=== PATIENT | female | born 1995 | race Caucasian/White ===

== ENCOUNTER 2022-01-11 02:08 | Day surgery (SDC) | payer OTHER, SELFPAY ==
[2022-01-09 12:22] VITALS: BMI 38.3
--- NOTE | 2022-01-09 12:30 | PC.NURSE ---
Report to the Outpatient Waiting Room, entrance under the green pavilion located off [facility], at time 1000 on date 01/11/22. OR Time: 1200. - You will be asked a series of questions to screen for COVID 19 for your protection. - A mask is required within the hospital. - No visitors are allowed at this time. Preoperative COVID Testing Requirements: TO SEND COPY OF + RESULT No COVID Test needed if: (proof is required; if not received patient will have Rapid Test prior to entry) - Patient has received COVID Vaccine at least 14 days prior to procedure date or - Patient has positive COVID test result within last 90 days of surgery date. COVID Test needed if above criteria is not met If not COVID vaccinated a COVID test must be conducted within 72 hours of surgery and patient is asked to isolate self from time of testing until procedure. You will go to the [email or web address] Site for your COVID testing. The [email or web address] site is located at the corner of [address] [facility]. You will only be called if COVID results are positive and your surgeon may reschedule your elective surgery date. Patients may have clear liquids (water, carbonated beverages, clear teas, apple juice) until 3 hours prior to surgery with a maximum of 20 ounces. - No food from midnight until time of surgery Take the following medications with a SIP of water the morning of surgery: NONE Medications to discontinue per physician: VITAMINS Date to take last dose: NO MORE UNTIL AFTER SURGERY Please no make-up, nail upper sorbian, hairspray, perfume, deodorant, or body powder the day of surgery. No jewelry (including any body piercings) or valuables the day of surgery, leave them at home. Please take a shower or bath the night before, or the morning of, surgery with an antibacterial soap. Wear comfortable, loose fitting clothing. - Jewelry must be removed prior to entering the operating room. Rings and piercings that are not removed may be cut off. - The hospital will not accept responsibility for valuables. - Please leave all valuables, including medications, at home the day of surgery. If you are going home after surgery, a licensed pizza delivery driver must drive you home. - NO public transportation without another adult. - We recommend that an adult stay with you for 24 hours following discharge. - We also recommend that you do not drive, make important decision, drink alcoholic beverages, or take any drugs that were not prescribed by your health care provider for at least 24 hours after your discharge time. Follow any additional instructions given to you from your surgeon. Telephone instructions given to LOUIE HOPE and asked if any additional questions and then verbalized understanding. Patient advised to call surgeon office or pre surgery nurse liaison [phone] if any additional questions.
--- NOTE | 2022-01-10 16:17 | P.PNAN_ITS ---
Anes - Initial Pre Proc Eval Procedure: Operation Date: 01/11/22 12:00 Proposed Procedures p Suction Dilatation Curettage - Ashlie Bah MD Date/Time: 01/10/22 16:17 Surgeon: Ashlie Bah MD Pre Op Diagnosis: missed AB Patient Data Age: 26 Gender: F Height: 1.77 m Weight: 119.5 kg Allergies Allergy/AdvReac Type Severity Reaction Status Date / Time No Known Allergies Allergy Verified 01/09/22 12:21 Home Medications Medication Instructions Recorded Confirmed Type no.144-folic acid 2 tablet PO DAILY 01/09/22 01/09/22 History [] Patient hx anesthesia problems: none Family hx anesthesia problems: none Results Review: All pre-operative results and documents have been reviewed as part of the pre-operative evaluation. [facility] Past Medical History Medical History (Updated 01/11/22 @ 11:48 by Rosendo Blanc MD) Anxiety Depression Obesity Social History Social History Smoking status: Never smoker Alcohol intake: never Substance use: never Substance use type: does not use Living arrangements: with family Spiritual care concerns: No Anes - Eval Final PreProcedure Day of Procedure 01/10/22 16:17 Patient weight: obese Heart: regular rate and rhythm Lungs: clear to auscultation and normal air movement Airway: Mallampati scale class II Neurological: alert and oriented Last oral intake: >/= 8 hours ASA classification: II Emergent: no Anesthetic plan: proceed Anesthesia type and monitoring: general GIVS Results Review: All pre-operative results and documents have been reviewed as part of the pre-operative evaluation. Informed Consent: The patient's anesthetic plan and its attendant risks and benefits were discussed with the patient/family/POA. Questions were solicited and answers provided to the satisfaction of the patient/family/POA.
[2022-01-11] MEDS: ACETAMINOPHEN 500 MG TABLET 1000 MG PO (11:02)
[2022-01-11] MEDS: LACTATED RINGERS 1,000 ML 30 ML IV CONT (11:03)
[2022-01-11 11:30] VITALS: BP 141/60; PULSE 68; RESP 16; TEMP 36.5; O2SAT 100
--- NOTE | 2022-01-11 11:55 | PM.IMHP ---
H&P: HPI History of Present Illness Date/Time: 01/11/22 11:55 Chief Complaint: miscarriage Narrative: Ashlie is a 26yo found to have missed ab on Sunday at 12w by dates, 8w by size. No bleeding yet. History only sig for anxiety and depression. Review of Systems Review of Systems: All systems reviewed & are unremarkable except as noted in HPI and below PMFSH Past Medical History Medical History (Updated 01/11/22 @ 11:58 by Ashlie Bah MD) Anxiety Depression Obesity Social History Social History Smoking status: Never smoker Alcohol intake: never Substance use: never Substance use type: does not use Living arrangements: with family Spiritual care concerns: No Meds Home Medications and Allergies Home Medications Medication Instructions Recorded Confirmed Type no.144-folic acid 2 tablet PO DAILY 01/09/22 01/09/22 History [] Allergies Allergy/AdvReac Type Severity Reaction Status Date / Time No Known Allergies Allergy Verified 01/09/22 12:21 Exam Const: General: no acute distress Resp: Effort & Inspection: normal respiratory effort Auscultation: clear to auscultation bilaterally Cardio: Rate: regular rate Rhythm: regular rhythm GI: GI Palp: Yes Soft to palpation Extrem: General: normal to inspection Assessment and Plan Assessment and plan (1) Missed : Code(s): O02.1 - Missed Status: Acute Additional Plan Discussed RBA, consented. Will proceed. elier ALMEIDA Rh pos.
--- NOTE | 2022-01-11 12:01 | WPDHPUPDATE1 ---
History and Physical Update Update Date/Time: 01/11/22 12:01 History and Physical has been reviewed, including an updated exam of the patient. There are NO changes in the patient's condition. Risks, benefits, and alternatives have been discussed and questions answered. Patient agrees to proceed with procedure.
[2022-01-11] MEDS: DOXYCYCLINE 100 MG/NS 100 ML 100 MG/100 ML BAG IVPB (12:07)
[2022-01-11] MEDS: BUPIVACAINE/EPINEPHRINE 0.25% 10 ML VIAL INFILTRATE (12:25)
--- NOTE | 2022-01-11 12:41 | W.PM.PROC2 ---
Procedure Note - Detailed Date of Procedure 01/11/22 Pre-op Diagnosis missed AB Post-op Diagnosis same Procedure Performed suction D and C Surgeon Ashlie Bah MD Anesthesia MAC Findings Uterus sounded to 10cm. copious products of conception obtained. brisk bleeding at end of procedure treated with methergine. Description of Procedure The patient was taken to the OR and placed in supine position in dorsal lithotomy. She received MAC anesthesia and doxycycline. She was prepped and draped in normal fashion. A speculum was placed and the cervix was grasped with a single tooth tenaculum. A paracervical block was placed with 10cc 0.25% marcaine with epinephrine. The cervix was sequentially dilated to 10 aguirre. The suction was tested and then the suction catheter was inserted into the uterine cavity. Several passes were made until no further products of conception were obtained. Methergine was given for bleeding. The tenaculum was removed and hemostasis was obtained with pressure and monsel's solution. The speculum was removed. The patient tolerated the procedure well and was taken to the recovery room in stable condition. Estimated Blood Loss 200 Drains No Packing No Pathology yes Complications No immediate complications Condition stable Disposition same day
[2022-01-11 12:42] VITALS: BP 106/64; PULSE 80; RESP 16; O2SAT 97
--- NOTE | 2022-01-11 12:44 | SUR.OPER ---
EBL 200ML
[2022-01-11 13:20] VITALS: BP 135/69; PULSE 69; RESP 16
[2022-01-11 13:50] VITALS: BP 129/64; PULSE 65; RESP 16
== END 2022-01-11 14:02 | disposition home or self-care (01) ==
PROVIDERS: PCP Family Medicine; Visit Provider Obstetrics & Gynecology
PROC: (CPT 59820; principal; 2022-01-11 12:00)
DX: O02.1 Missed abortion (principal); Z3A.12 12 weeks gestation of pregnancy
CPT/HCPCS: 59820; 36415; 84702; 85461; 88305; A9270; J2210; J2250; J2704; J3010; J7120

== ENCOUNTER 2023-03-27 21:50 | Observation (INO) | payer OTHER, SELFPAY ==
--- NOTE | 2023-03-28 00:25 | OBADM ---
This patient, Ashlie Messer, admitted to the OB room Labor/Delivery/Recovery 106 for observation. Patient/family oriented to hospital policies and general routines including ID bracelet, bed and alarms, visiting hours, pain management, procedures, bathroom and other care routines, personal items, smoking policy, room service/diet, and visiting hours. Patient/Family are encouraged to report perceived risks to care and to ask questions if they do not understand what they are told or what they should do.
--- NOTE | 2023-04-20 07:33 | PM.OBTRLD ---
OB - Triage/Final Diagnosis Visit Information Comments/Additional reasons for admission: I have assessed the risk for this patient, Ashlie Messer, and determined that she would benefit from observation care. Final Diagnosis (1) False labor: Code(s): O47.9 - False labor, unspecified Status: Acute
== END 2023-03-28 00:23 | disposition home or self-care (01) ==
PROVIDERS: Admitting Provider Obstetrics & Gynecology; PCP Family Medicine; Visit Provider Obstetrics & Gynecology
DX: O47.1 False labor at or after 37 completed weeks of gestation (principal); Z3A.38 38 weeks gestation of pregnancy
CPT/HCPCS: G0378; G0379

== ENCOUNTER 2023-03-31 04:55 | Inpatient (IN) | payer OTHER, SELFPAY ==
[2023-03-31] VITALS (35 sets, daily range): BP systolic 102–175; BP diastolic 55–103; PULSE 57–143; RESP 15–18; TEMP 36.4–37.2; O2SAT 100; BMI 41.5
--- NOTE | 2023-03-31 04:55 | LDADM ---
This patient, Ashlie Messer, was admitted to Labor/Delivery/Recovery 108 on 03/31/23 at 04:55. Plans for labor, pain management and were discussed with patient. Patient/family oriented to hospital policies and general routines including ID bracelet, bed and alarms, visiting hours, pain management, procedures, bathroom and other care routines, personal items, smoking policy, room service/diet and guest tray routines, security routines, and visiting hours. Patient/Family are encouraged to report perceived risks to care and to ask questions if they do not understand what they are told or what they should do. See OBIX for further documentation.
[2023-03-31 05:43] LABS: Basophils Percent Auto 0.4 % (0.2-1.2); Eosinophils Absolute Auto 0.1 K/mm3 (0-0.3); Eosinophils Percent Auto 1.5 % (0-4.4); Hematocrit 36.8 % (37.0-47.0); Hemoglobin 12.1 g/dL (12.0-15.0); Immature Granulocyte Percent A 1.2 % (0-0.5); Lymphocytes Absolute Auto 1.52 K/mm3 (0.9-3.2); Lymphocytes Percent Auto 18.8 % (18.3-44.2); Mean Corpuscular HGB Conc 32.9 g/dl (32-36); Mean Corpuscular Hemoglobin 27.5 pg (26-34); Mean Corpuscular Volume 83.6 fl (80-100); Mean Platelet Volume 11.7 fl (7.4-10.4); Monocytes Absolute Auto 0.6 K/mm3 (0.1-0.6); Monocytes Percent Auto 7.2 % (2.6-8.5); Neutrophils Absolute Auto 5.7 K/mm3 (1.3-6.7); Neutrophils Percent Auto 70.9 % (45.5-73.1); Platelet Count Result 158 k/mm3 (150-375); Red Cell Distribution Width 14.7 % (11.5-14.5); White Blood Count 8.1 K/mm3 (4.5-10.0)
[2023-03-31] MEDS: ONDANSETRON INJ 4 MG/2 ML VIAL IV PUSH ×2 (07:43→16:23)
--- NOTE | 2023-03-31 07:43 | WPDOBADMIT ---
Obstetrics - Admit Note Admission Note: record reviewed. No pertinent additions to the history and/or any subsequent changes in the physical findings that are not consistent with the expected course of the were found. elective IOL, hx of precipitous , SVE 2/80/-2 AROM small amount of clear, odorless fluid, anticipate vaginal delivery Additions to the history and/or subsequent changes in the physical findings follow. None.
[2023-03-31] MEDS: LACTATED RINGERS 1,000 ML 125 ML IV CONT (13:30)
[2023-03-31] MEDS: OXYTOCIN 30 UNITS/NS 500 ML 30 UNITS/500 ML BAG IV CONT (13:31)
[2023-03-31] MEDS: fentaNYL CITRATE INJ (*CRX) 100 MCG/2 ML VIAL IV PUSH (17:05)
--- NOTE | 2023-03-31 18:35 | PM.OBPRVD ---
OB - Delivery Note Procedure Delivery date: 03/31/23 Procedure: Induction method: AROM and Per Pitocin Protocol Delivery monitor: External FHT and External Uterine Laceration Description: None Specimen: No Quantitative Blood Loss (ml): 75 Anesthesia type: None Disposition: Floor [place] Baby Date of : 03/31/23 Time of : 18:24 Weeks of gestation at delivery: 39 gender: Female presentation: compound position: Left Occiput Anterior Placenta delivery description: Spontaneous Narrative: baby to warmer, then skin to skin in stable condition
[2023-03-31] MEDS: OXYTOCIN 30 UNITS/NS 500 ML 30 UNITS/500 ML BAG 125 UNITS IV CONT (18:47)
[2023-03-31] MEDS: BENZOCAINE 20% AER SPR (*SP) 56 GM CAN 1 SPRAY TOPICAL (18:48)
[2023-03-31] MEDS: IBUPROFEN 600 MG TABLET PO (18:48)
[2023-03-31] MEDS: WITCH HAZEL 40 PADS 1 PAD TOPICAL (18:48)
--- NOTE | 2023-04-01 00:46 | OBPPTRN ---
03/31/2023 at 2105 Patient transferred to post room #284 in wheelchair. Support person present. Oriented to unit, room, information board, rooming in, admission packet and security measures. Patient verbalizes understanding.
[2023-04-01 03:25] VITALS: BP 126/65; PULSE 71; RESP 16; TEMP 36.6; O2SAT 100
[2023-04-01 05:15] LABS: Hematocrit 36.3 % (37.0-47.0); Hemoglobin 11.6 g/dL (12.0-15.0)
[2023-04-01] MEDS: ACETAMINOPHEN 325 MG TABLET 650 MG PO ×2 (06:36→16:26)
[2023-04-01 07:00] VITALS: BP 122/64; PULSE 75; RESP 16; TEMP 36.7; O2SAT 99
--- NOTE | 2023-04-01 09:07 | PM.OBPNVD ---
OB - PN: Subj Subjective Date/time seen: 04/01/23 09:07 s/p vaginal delivery day 1 OB - PN: Obj Data Labs 04/01/23 05:04 Labs: Laboratory Results - last 24 hr 04/01/23 05:04 Hgb 11.6 L Hct 36.3 L OB - PN A/P Plan day: 1 Plan: routine care Time Spent With Patient Time: Total time spent is greater than 50% in coordination of care (as documented) at patient's floor/unit and/or counseling patient: Review of Systems Review of Systems: All systems reviewed & are unremarkable except as noted in HPI and below Exam Const: General: cooperative and healthy appearing Resp: Effort & Inspection: normal respiratory effort Skin: General skin exam: normal color Extrem: Right lower extremity: normal to inspection Left lower extremity: normal to inspection
[2023-04-01] MEDS: DOCUSATE SODIUM 100 MG CAPSULE PO ×2 (10:02→16:26)
[2023-04-01] MEDS: MULTIVIT/MIN/PREN/FOL AC/IRON TABLET 1 TAB PO (10:02)
[2023-04-01] MEDS: IBUPROFEN 600 MG TABLET PO (12:03)
[2023-04-01 16:25] VITALS: BP 130/72; PULSE 78; RESP 16; TEMP 36.9; O2SAT 97
[2023-04-01 20:00] VITALS: BP 133/75; PULSE 69; RESP 16; TEMP 36.4; O2SAT 99
[2023-04-02] MEDS: TETANUS,DIPHTHERIA,AC PERTUSSIS ADULT (0.5 ML) BOOSTRIX IM (00:10)
--- NOTE | 2023-04-02 07:32 | PM.OBPNVD ---
OB - PN: Subj Subjective Date/time seen: 04/02/23 07:32 s/p vaginal delivery day 2 no complaints OB - PN: Obj Data Labs 04/01/23 05:04 OB - PN A/P Plan day: 2 Time Spent With Patient Time: Total time spent is greater than 50% in coordination of care (as documented) at patient's floor/unit and/or counseling patient: Review of Systems Review of Systems: All systems reviewed & are unremarkable except as noted in HPI and below Exam Const: General: cooperative Chest: Chest palpation & inspection: normal inspection of the chest Resp: Effort & Inspection: normal respiratory effort GI: Inspection: normal to inspection Skin: General skin exam: normal color Extrem: Right lower extremity: normal to inspection Left lower extremity: normal to inspection Psych: Appearance: grossly normal
--- NOTE | 2023-04-02 07:34 | PM.OBDSVD ---
DS: Admitting Diagnosis Discharge Date 04/02/23 Admitting Diagnosis IOL DS: Discharge Diagnosis Discharge Diagnosis (1) Vaginal delivery: Code(s): O80 - Encounter for full-term uncomplicated delivery Status: Acute OB - DS: Summary OB Procedures : None OB Procedures Intrapartum: Spontaneous Vag Delivery OB Procedures: : None Time Spent with Patient Time attestation: Total time spent providing and/or coordinating discharge services: Discharge Plan Discharge Attending physician on discharge: Brooke Alberts Discharging Clinician: Inés Pena Patient Disposition: Home, Self-Care Activity: pelvic rest Diet: regular Patient Instructions: Antibiotic Form Stand Alone Forms: General Discharge Information Follow-up/Referrals: Inés Pena CNM [Certified Nurse Event Set Up Specialist] - Discharge Medications: New ibuprofen 600 mg Tablet 600 mg PO Q6H PRN (Reason: Cramping) Qty: 30 0RF Continued 400 mcg Tablet,Chewable 2 tablet PO DAILY ferrous sulfate 325 mg (65 mg iron) Tablet 325 mg PO EVERY OTHER DAY Date of admission: 03/31/23 04:55 Primary Care Provider: Ezequiel Taylor Admitting Provider: Ashlie Bah Attending physician on admission: Ashlie Bah Condition: Stable
[2023-04-02] MEDS: DOCUSATE SODIUM 100 MG CAPSULE PO (07:42)
[2023-04-02] MEDS: MULTIVIT/MIN/PREN/FOL AC/IRON TABLET 1 TAB PO (07:42)
[2023-04-02] MEDS: IBUPROFEN 600 MG TABLET PO (07:42)
[2023-04-02 08:00] VITALS: BP 122/80; PULSE 64; RESP 16; TEMP 36.8; O2SAT 100
[2023-04-02 10:05] LABS: Rapid Plasma Reagin Non-Reactive (NonReactive)
--- NOTE | 2023-04-02 10:16 | PC.NURSE ---
Patient to view the discharge video Mother & Baby Care, The First Two Weeks online. Patient was given the opportunity and encouraged to ask questions during discharge teaching. Patient verbalized understanding of information shared and has been given the mother/baby guide for home reference.
--- NOTE | 2023-04-02 10:58 | PC.NURSE ---
[phone] Introductions were made to father of the baby.Primary RN reported mother is independently with no pain. Resources provided for inpatient and outpatient services with a buisness card, mom/baby guide and name written on the white board. Father voiced understanding of information and will call if there is a request for assistance. Reported to the primary RN.
--- NOTE | 2023-04-02 12:14 | PC.NURSE ---
[phone] Introductions were made to the Father of the baby. Resources provided for inpatient and outpatient services with a business card, mom/baby guide and name written on the white board. Father voiced understanding of information and will call if there is a request for assistance. [phone] Introductions were made, then consulted with patient to assess needs related to . Mother led the conversation with her?plans to feed?her infant, the?experience so far, history and the need for a pump through insurance. Instructions given on cleaning, care, usage, that there should be no pain, pumping schedule for milk production, collection, and storage of human milk. Parents are encouraged to record pumping schedule on the feeding sheet. Patient was assessed for correct placement, flange size, to pump for comfort and nipple stretching/stimulation for adequate milk production every 3 hours (8 times in 24 hours) 1-2 times at night. Mother voiced understanding of the education shared along with mom and baby guide for additional resource information. Mother led the conversation with her experience and plan to feed her so far and her ability to independently latch infant optimally without discomfort. Reminded parents to use good handwashing technique to prevent infection. Mother is feeding appropriately for growth of infant and understands stimulating infant to eat if needed. has had appropriate feedings in the last 24 hours meets the outcomes for weight, output and jaundice at this time. Mother states she is confident to continue effectively her at home, when to call for assistance and denies any additional assistance or education at this time. Reinforced understanding of milk production, transition of milk, signs of adequate intake, transition of stool, prevention/relief of engorgement, responsive watching for feeding cues, the different methods of stimulating to breastfeed 2-3 hours after the start of the last feeding, community resources, medication information reviewed per [employer] and when to call a provider using the resource of the mom and baby guide. Mother voiced understanding of the education shared. Reported to the primary RN.
== END 2023-04-02 11:25 | disposition home or self-care (01) | DRG 560 ==
LOC: ANHLDR 04:58 → ANHOB2 23:13
PROVIDERS: Advanced Practice Midwife; Admitting Provider Obstetrics & Gynecology; PCP Family Medicine; Visit Provider Obstetrics & Gynecology
DX: O32.6XX0 Maternal care for compound presentation, not applicable or unspecified (principal); Z37.0 Single live birth; Z3A.39 39 weeks gestation of pregnancy
CPT/HCPCS: 36415; 85014; 85018; 85025; 86592; 86850; 86900; 86901; 90715; A9270; J2405; J2590; J3010; J7120

== ENCOUNTER 2023-09-19 08:44 | Outpatient (CLI) | payer OTHER, SELFPAY ==
--- NOTE | ~2023-09-19 | US_ITS ---
US right upper quadrant INDICATION: Right upper quadrant pain PROCEDURE: Realtime right upper abdominal ultrasound. COMPARISON: No prior studies for comparison. FINDINGS: The pancreas is normal without focal mass or pancreatic ductal dilation. Liver echotexture is normal without focal mass or intrahepatic biliary dilatation. There is normal directional flow i n the portal vein. There are gallstones. There is mild gallbladder wall thickening. Common bile duct measures 9 mm. Po sitive sonographic Vera's sign. IMPRESSION: 1: Cholelithiasis with gallbladder wall thickening, biliary dilatation and positive sonographic Mingo y's sign. Findings compatible with cholecystitis. Reviewed, dictated and finalized at location B. IMPRESSION: 1: Cholelithiasis with gallbladder wall thickening, biliary dilatation and posi tive sonographic Vera's sign. Findings compatible with cholecystitis.
== END 2023-09-19 08:45 | disposition home or self-care (01) ==
PROVIDERS: PCP Family Medicine
DX: R10.11 Right upper quadrant pain (principal); K80.20 Calculus of gallbladder without cholecystitis without obstruction
CPT/HCPCS: 76705

== ENCOUNTER 2025-01-20 08:19 | Outpatient (CLI) | payer OTHER, SELFPAY ==
--- NOTE | ~2025-01-20 | US_ITS ---
EXAMINATION: US right upper quadrant DATE: 01/20/2025 08:38 INDICATION: Right upper quadrant abdominal pain. TECHNIQUE: Multiple grayscale and Doppler ultrasound images of the abdomen were obtained. COMPARISON: Ultrasound 09/19/2023 FINDINGS: The visualized portions of the head, body, and tail of the pancreas are normal. The liver i s normal without focal lesion. There is normal flow in main portal vein. The gallbladder is normal in size and contains gallstones. No gallbladder wall thickening or sonographic Vera sign. The common duct is normal and measures 2 mm. IMPRESSION: 1. Cholelithiasis. No evidence of acute cholecystitis. Reviewed, dictated and finalized at location A. WRAPPER
--- OUTSIDE RECORDS SUMMARY | 2025-01-20 08:39 | XMS_ITS | Data Portability ---
Author Organization [facility] Address [address] [place] [address] [place] [address] Care Team Providers Care Editor Continuity And Script Name Role Phone CARRIE SPENCE Primary Care Provider [phone] Assessment Encounter Date Assessment Date Assessment LastModified by Organization Details LastModified Time 05/16/2023 05/16/2023 normal exam f/u 6 mo wwe Not available 05/16/2023 14:15:47 11/16/2023 11/16/2023 Annual gynecological exam performed. Patient will come back in a year unless there are new symptoms.. Suggest Calcium with Vitamin D if not eating in diet. Patient advised to get annual flu shot. Recommend yearly physicals and preform monthly breast exams. Genetic testing is available for patients with family history of cancer. Engage in safe sexual practices, use condoms. Encouraged to have daily exercise. Avoid tobacco and illicit drugs, moderation of alcohol. If BMI greater than 25 dietary consult advised. If you have any questions please call or email. Not available 11/16/2023 11:34:18 Plan of Treatment Reminders Order Date Submit Date Provider Last Modified By Organization Details Last Modified Time Details Appointments None recorded. Lab None recorded. Referral None recorded. Procedures None recorded. Surgeries None recorded. Imaging non-stres s test 023 023 [place], [address], [address], [place], [address], 12:04:45 Medication Orders Slynd 4 mg (28) tablet 024 024 [facility] [address] [place], [address], 4 12:07:20 Provera 10 mg tablet [address] [facility] [place], [address], 4 11:55:39 Patient TargetsNo targets recorded. Patient InstructionsNo instructions recorded. Reason for Referral None Reported. Results Created Date Observation Date Name Description Value Unit Range Abnormal Flag Note LastModifiedBy Organization Detail LastModifiedTime 03/12/2003/12/2023 CULTU RE: GROUP B STREP SCREE N, REFLE X SUSCE PTIBI LITY result report SEE RESULT S BELOW Test: Cultu re: Group B Strep , Refle x Susce ptibi lity ([facility]/ [facility] ) Speci men Sourc e: Vagin a/Rec kathleen Speci men Type: Vagin al/Re ctal Speci men Date: 2022 1:47 PM Resul t Date: 2022 2:05 PM Resul t Statu s: Final resul t Abnor mal: No Resul ting Lab: [facility] [address] [facility] [address] Tel: CULTU RE ----- ----- ----- --- No Group B strep isola rowan at 2 days (pema ctive broth enhan cemen t) Not Available [facility] (Lab) [address], [place], [address], 03/15/2023 15:08:05 11/16/20 23 11/16/2023 IMAGE GUIDE D PAP, REFLE X HPV IF ASCUS ONLY image guided Pap, reflex HPV ASCUS only SEE RESULT S BELOW CASE REPOR T: Cytol ogy Gynec ologi lucinda Repor t Case: [id number] Autho lawanda pereira Provi shannon: Inés Greene NP Colle cted: 11/16 1325 Order ing Locat ion: [place] Patho log[facility] Recei melia: 11/20 0947 First Scree n: Serina Franco, CT Rescr een: Boyd Shelley, CT Speci men: Scree alina Pap - Image d, Cervi x STATE MENT OF ADEQU ACY: Satis facto ry for evalu ation Trans forma tion zone compo nent absen t The absen ce of an endoc ervic al compo nent was confi rmed by an addit ional scree ner. FINAL DIAGN OSIS: Negat juana for Intra epith elial Lesio n or Néstor nuñez (NIL) . Elect alonso elvialeidy silvana d by Boyd Shelley, CT on 11/22 at 2:04 PM ----- ----- ----- ----- ----- ----- ----- ----- ----- ----- ----- ----- ----- ----- ----- ----- ----- ---- COMME NT: This speci men was revie wed by a Cytot echno logis t and/o r Patho logis t (as indic ated in this repor t) after evalu ation using the Thinp rep Imagi ng Syste m. CLINI LUCINDA INFOR MATIO N: Menst rual Statu s: LMP (if appli cable ): Clini lucinda Histo ry/Pr eviou s Pap: Type of Neopl tavia (if appli cable ): Signi fican t Clini lucinda Findi ngs: Other Histo ry: Hormo mojgan (if appli cable ): PAP EDUCA SONU L NOTE: The Pap Test is a scree alina test with an inher ent false negat juana rate. Liqui d-bas ed sampl ing may decre ase, but will not elimi edis, false negat juana resul ts. A negat juana resul t does not precl ude the prese nce and/o r devel opmen t of disea se, since the prese nce of abnor mal cells in the sampl e depen ds on the locat ion of the lesio n and sampl ing techn ique. Tierney nued regul ar scree alina is the best metho d of cance r preve ntion . If repor rowan cytol ogic findi ng do not corre late with physi lucinda and/o r histo rical findi ngs, furth er inves tigat ion is recom lisa d, as clini stephany flores nted. Not Available [facility] (Lab) [address], [place], [address], 11/22/2023 15:07:23 02/27/20 23 02/26/2023 non-s tress test No observ ation record ed. [email or web address] [place] [address], [place], [address], 02/26/2023 15:09:40 03/12/20 23 03/12/2023 non-s tress test No observ ation record ed. [email or web address] [place] [address], [place], [address], 03/12/2023 12:40:17 03/19/20 23 03/19/2023 non-s tress test No observ ation record ed. [email or web address] [place] [address], [place], [address], 03/19/2023 20:31:26 03/19/20 23 03/19/2023 US, nikolai irvin, follo w-up No observ ation record ed. [email or web address] [place] [address], [place], [address], 03/19/2023 17:48:48 03/19/2003/19/2023 US, nikolai irvin, bioph ysica l profi le + non-s tress test No observ ation record ed. [email or web address] [place] [address], [place], [address], 03/19/2023 17:48:39 03/19/20 23 03/19/2023 US, obste tric, follo w-up No observ ation record ed. [email or web address] [place] [address], [place], [address], 03/21/2023 11:27:07 03/26/20 23 03/26/2023 non-s tress test No observ ation record ed. [email or web address] [place] [address], [place], [address], 03/26/2023 11:57:28 Result Notes None recorded. Problems Name Problem SNOMED Code Status Onset Date Resolution Date Notes Provider Name and Address Organization Details Recorded Time History of depressi on 245866547 Active 2021 Ashlie Bah MD [address], [place], [address], [facility] 2 11:43:43 Pregnanc y 38284586 Completed 202[facility] 3 16:35:20 Labor problem 00696540 Completed precipit ous delivery - in car. [facility]w [facility] 3 16:35:15 Maternal obesity complica ting pregnanc y, childbir th and the puerperi um, antepart um 1392528947 07 Completed BMI 39- ante testing at 34w [facility] 3 16:35:15 Problem Notes None recorded. Procedures Surgical History Date Name Laterality Status Provider Name and Address Organization Details Recorded Time 11/16/20 Date of Last Pap Smear completed Gianna Jay [facility] 11/16/2023 14:09:57 01/11/20 22 SUCTION DILATION & CURETTAGE (SURG) completed Agueda Duncan [facility] 01/12/2022 10:29:28 11/26/19 05 Tonsillectomy completed Gianna Jay [facility] 11/22/2022 12:18:00 Imaging Results Imaging Date Name Status LastModified by Organiz ation Details LastModified Time 02/26/2023 non-stress test completed [email or web address] [place] [address], [place], [address], 02/26/2023 15:09:40 03/12/2023 non-stress test completed [email or web address] [place] [address], [place], [address], 03/12/2023 12:40:17 03/19/2023 non-stress test completed [email or web address] [place] [address], [place], [address], 03/19/2023 20:31:26 03/19/2023 US, obstetric, follow-up completed [email or web address] [place] [address], [place], [address], 03/19/2023 17:48:48 03/19/2023 US, obstetric, biophysical profile + non-stress test completed [email or web address] [place] [address], [place], [address], 03/19/2023 17:48:39 03/19/2023 US, obstetric, follow-up completed [email or web address] [address], [place], [address], 03/21/2023 11:27:07 03/26/2023 [facility]-stress test [email or web address] [place] [address], [place], [address], 03/26/2023 11:57:28 Procedure Notes None recorded. Medical Equipment None Reported. Allergies No known drug allergies Medications Name Sig Start Date Stop Date Status Note LastModified by Organization Details LastModified Time medroxyprog esterone 10 mg tablet Take 1 tablet every day by oral route. 01/29 completed Not Available Not Available Not Available clindamycin HCl 300 mg capsule TAKE 1 CAPSULE BY MOUTH THREE TIMES DAILY FOR 7 DAYS 05/16 completed Not Available Not Available Not Available prednisone 20 mg tablet 01/15 completed Not Available Not Available Not Available benzonatate 100 mg capsule 01/15 completed Not Available Not Available Not Available cephalexin 500 mg capsule TAKE 1 CAPSULE BY MOUTH THREE TIMES DAILY 01/29 completed Not Available Not Available Not Available ibuprofen 600 mg tablet TAKE 1 TABLET BY MOUTH EVERY 6 HOURS NEEDED FOR CRAMPING 05/16 completed Not Available Not Available Not Available 01/29 completed Not Available Not Available Not Available Etta Fe 12/15 (28) 1 mg-20 mcg (21)/75 mg (7) tablet 12/19 completed Not Available Not Available Not Available Slynd 4 mg (28) tablet Take 1 tablet every day by oral route. active Not Available Not Available No t Available Vitals Date Recorded Body height Body mass index (BMI) Systolic blood pressure Diastolic blood pressure Provider Name and Address Organization Details Last Updated DateTime 03/26/2023 172.72 cm 41.4 kg/m2 136 mm[Hg] 80 mm[Hg] Lalita Mccray [facility] 03/26/2023 11:55:27 Date Recorded Body weight Provider Name an d Address Organization Details Last Updated DateTime 03/26/2023 697974.20814 g Ashlie Bah MD [address], [place], [address], [facility] 03/26/2023 13:36:20 Date Recorded Body height Body mass index (BMI) Body weight Systolic blood pressure Diastolic blood pressure Provider Name and Address Organization Details Last Updated DateTime 05/16/2023 172.72 cm 36.9 kg/m2 605891.9 5 g 127 mm[Hg] 86 mm[Hg] Gianna Jay [facility] 14:05:49 Date Recorded Body height Body mass index (BMI) Body weight Systolic blood pressure Diastolic blood pressure Provider Name and Address Organization Details Last Updated DateTime 11/16/2023 172.72 cm 37.4 kg/m2 695353.7 2 g 126 mm[Hg] 74 mm[Hg] Gianna Jay [facility] 3 11:12:42 Date Recorded Body height Body mass index (BMI) Body weight Systolic blood pressure Diastolic blood pressure Provider Name and Address Organization Details Last Updated DateTime 01/30/2024 172.72 cm 38.9 kg/m2 849843.6 5 g 136 mm[Hg] 86 mm[Hg] Maria De Jesus Poole [facility] 4 11:55:19 Social History Question Answer Notes LastModified by Organizat ion Details LastModified Time Tobacco Smoking Status Never Smoker Gianna Jay [facility], [facility] 05/16/2023 14:06:00 Do You Have An Advance Directive? No Information n ot available 08/08/2021 What Is Your Level Of Alcohol Consumption? Occasional [email or web address] Information not available 05/16/2023 If You Are , What Was Your Level Of Alcohol Consumption Prior To ? Occasional [email or web address] Information not available 05/16/2023 How Many Years Have You Consumed Alcohol? 4 [email or web address] Information not available 08/08/2021 Are You Blind Or Do You Have Difficulty Seeing? No Information n ot available 08/08/2021 What Is Your Level Of Caffeine Consumption? Moderate [email or web address] Information not available 03/19/2023 How Much Tobacco Do You Chew? None [email or web address] Information not available 08/08/2021 In The 14 Days Before Symptom Onset, Have You Had Close Contact With A Laboratory-confirm ed COVID-19 While That Case Was Ill? No [email or web address] Information n ot available 08/08/2021 In The 14 Days Before Symptom Onset, Have You Had Close Contact With A Person Who Is Under Investigation For COVID-19 While That Person Was Ill? No [email or web address] Information not available 08/08/2021 Have You Been To An Area Known To Be High Risk For COVID-19? No Information not available 08/08/2021 Are You Deaf Or Do You Have Serious Difficulty Hearing? No Information not available 08/08/2021 What Type Of Diet Are You Following? REGULAR [email or web address] Information n ot available 08/08/2021 What Is The Highest Grade Or Level Of School You Have Completed Or The Highest Degree You Have Received? [id number] Information not available 08/08/2021 Are There Any Guns Present In Your Home? Yes [email or web address] Information not available 12/19/2022 Do You Use Protection During Sex? Usually [email or web address] Information not available 08/08/2021 Do You Use Your Seat Belt Or Car Seat Routinely? Yes [email or web address] Information not available 08/08/2021 Do You Have Smoke And Carbon Monoxide Detectors In Your Home? Yes [email or web address] Information not available 08/08/2021 How Much Tobacco Do You Smoke? No [email or web address] Information not available 08/08/2021 Do You Feel Stressed (tense, Restless, Nervous, Or Anxious, Or Unable To Sleep At Night)? [id number] [email or web address] Information not available 05/16/2023 Do You Use Any Illicit Or Recreational Drugs? No [email or web address] Information not available 08/08/2021 Do You Use Sunscreen Routinely? Yes [email or web address] Information not available 08/08/2021 Have You Used IV Drugs? No [email or web address] Information not available 08/08/2021 Sex: Unknown Functional Status Question Answer Note LastModified by Organizat ion Details LastModified Time Do you have difficulty walking or climbing stairs? No [email or web address] Information not available 05/16/2023 Are you able to walk? YESWOREST [email or web address] Information not available 08/08/2021 Are you able to care for yourself? Yes [email or web address] Information not available 05/16/2023 Do you have difficulty dressing or bathing? No [email or web address] Information not available 05/16/2023 What is your exercise level? Moderate [email or web address] Information not available 08/08/2021 Mental Status None recorded. Family History Relationship Description Onset Age of this Age Resolved Age Notes LastModified by Organization Details LastModified Time Paternal Grandmother Malignant tumor of breast [email or web address] Not available 2020 14:59:25 Notes:Cancer risk form compl eted on 08/05/2021 Medical History Condition Response Allergies (Food, seasonal, environmental ) N Other N Blood Transfusion N Drug/Latex Allergies/Reactions N Breast Cancer N Lung Disease N Dermatologic Disorders N Defects or Inherited Disease N Breast Problem N Gestational Diabetes N Hematologic disorders N Anesthesia Complications N History of STI N Deep Vein Thrombosis N Polycystic ovary syndrome N Anxiety Disorder Y Autoimmune disease N Arthritis N Polyps N Infertility N Acid Reflux (GERD) N History of abnormal pap N Cancer N Stroke N Varicosities N Neurologic/Epilepsy N Endometriosis N High Cholesterol N Fibromyalgia N Headaches N Kidney Disease N Heart Problems N Thyroid Problems N Kidney or Bladder Problems N GI Problems N Eating Disorder N Anemia N Art (IVF or FET) N Psychiatric Illness N Diabetes N Ovarian Cancer N Pulmonary (TB, Asthma) N Hepatitis/Liver Disease N No Past Medical History N Eczema N Urinary Tract Infection N Abuse/Domestic Violence N Asthma N Trauma/Violence N Depression/ depression Y Heart Disease N Pre-Eclampsia N Hypertension Y Osteoporosis N Thrombophilias N Gynecological History Statement/Question Response Abnormal Pap N Flow Moderate Date of LMP 12/31/2023 On BCP's at Conception? Y N Was last menstrual period normal Y STIs/STDs N HPV Vaccine N Duration of Flow (days) 4 Current Control Method None Age at First Child 20 Are cycles usually normal Y Frequency of Cycle (Q days) 40 Sexually Active? Y Menses Monthly N Age of first menstrual cycle 13 Date of Last Pap Smear 11/16/2023 Sexual Problems? N Desired Control Method None LMP Approximate N Obstetrics History GPAL:G 4 P 3 0 1 3 Type Value Full Term 3 Spontaneous 1 Living 3 Total 4 Past Encounters Encounter ID Performer Location Encounter Start Date Encounter Closed Date Diagnosis/Indication Diagnosis SNOMED-CT Code Diagnosis ICD10 Code Diagnosis Note [id number] Erika Westmitch [place] [address] [address] 08/08/2021 11:18:30 08/08/2021 12:47:27 Contraception care management 584589950 Z30.9 Discussed all control options in great detail. Pt would like to start ocp. She is aware of the risks and benefits. She does not have any medical condition that is contraindi cated with the use of estrogen containing control. Pt will start her pills on the first Sunday following the start of her period. She is aware it is not effective for control the first month. She is also aware of the importance of taking at the same time every day. Encouraged use of condoms as the pill does not protect against STD's. Will return in 3 months for med check. Consent was read and signed. Pt verbalized understand ing. [id number] Erika Jamil [place] [address],[place] [address] 11/28/2021 15:59:22 11/29/2021 18:10:01 test positive 186625231 Z32.01 Risk factors addressed: Tobacco Cessation, Safe Sexual Practices, environmen xiomy, work hazards, travel restrictio ns, seat belt use.Eat a health well balanced diet, avoid alcohol, tobacco, and street drugs.Enga ge in daily low impact exercise, avoid temperatur e extremes, and cat, rodent, and bird feces.Avoi d travel to areas where zika virus is a concern.Of fered cf/sma/nip t. Desires NIPT. Will await records to see if cf/sma was already done in her previous . Handouts given and discussed with patient.Ch ildbirth classes recommende d.New OB sheet given.If previous , counseling .Pt verbalizes that she understand s the importance of above instructio ns.All questions were answered.P atient reminded to have annual well woman examinatio n and address [facility] [id number] [facility] [address],[place] [address] 11/28/2021 16:01:16 11/28/2021 16:55:44 screening 207390841 Z36.[id number] [facility] [address],[place] [address] 01/09/2022 11:44:02 01/09/2022 12:13:22 Missed miscarriage 26734876 O02.1 Z3A.12 [id number] Ashlie Bah MD [place] [address],[place] [address] 01/09/2022 11:44:20 01/09/2022 12:29:36 Missed miscarriage 72737590 O02.1 Z3A.12 [id number] Ashlie Bah MD [place] [address],[place] [address] 01/12/2022 09:41:33 01/12/2022 09:42:52 [id number] Ashlie Bah MD [place] [address],[place] [address] 01/18/2022 14:52:04 01/19/2022 14:36:21 Missed miscarriage 27426008 O02.1 Z3A.12 Partial hy datidiform mole 391206589 [facility] 353193848 Z30.9 [id number] Brigid Nugent [place] [address],[place] [address] 08/23/2022 10:26:13 08/23/2022 12:09:28 [id number] Ashlie Bah MD [place] [address],[place] [address] 08/23/2022 10:26:42 08/23/2022 12:02:59 Past history of molar 1526183648 0298705 Z87.59 test positive 892624087 Z32.01 History of depression 16 6574206 Z86.59 Maternal o besity complicating , childbirth and the puerperium, antepartum 9436096267 07 O99.211 [id number] Ammy Oconnell [place] [address],[place] [address] 09/26/2022 14:50:22 09/27/2022 15:10:19 screening 288424219 Z36.82 [id number] Ashlie Bah MD [place] [address],[place] [address] 09/26/2022 14:50:47 09/26/2022 16:29:02 Routine care 345724050 Z34.91 History of depression 16 5067706 Z86.59 Maternal o besity complicating , childbirth and the puerperium, antepartum 1154383858 07 O99.211 [id number] Ashlie Bah MD [place] [address],[place] [address] 10/23/2022 10:48:27 10/24/2022 18:06:09 Routine care 133367368 Z34.91 [id number] Ammy Oconnell [place] [address],[place] [address] 11/22/2022 10:55:59 11/22/2022 12:41:35 screening 672711495 Z36.3 [id number] [facility] [address],[place] [address] 11/22/2022 10:56:49 11/22/2022 12:29:42 Routine care 723102506 Z34.92 [id number] Ammy Oconnell [place] [address],[place] [address] 12/19/2022 11:00:33 12/19/2022 12:27:59 Maternal obesity complicating , childbirth and the puerperium, antepartum 8013831796 07 O99.212 Z36.2 Z3A.24 [id number] [facility] [address],[place] [address] 12/19/2022 11:00:52 12/19/2022 15:22:44 Routine care 023293996 Z34.92 [id number] Brigid Nugent [place] [address],[place] [address] 01/15/2023 12:00:51 01/15/2023 12:50:21 screening 851182790 Z36.2 O99.213 Z3A.28 [id number] Erika [facility] [address],[place] [address] 01/15/2023 12:01:48 01/15/2023 18:25:18 Routine care 030054651 Z34.92 [id number] Ashlie Bah MD [place] [address],[place] [address] 01/29/2023 12:13:16 01/31/2023 15:13:23 Maternal obesity complicating , childbirth and the puerperium, antepartum 5133671839 07 O99.212 Z36.2 Z3A.24 Routine an tenatal care 198132957 Z34.91 [id number] Brigid Nugent [place] [address],[place] [address] 02/12/2023 10:54:19 02/12/2023 11:58:22 Uterine size for dates discrepancy 333031324 O26.843 O99.213 Z3A.32 [id number] Julio Alberts MD [place] [address],[place] [address] 02/12/2023 10:55:10 02/12/2023 12:37:56 Routine care 157966204 Z34.83 [id number] Cristal Blanc [place] [address],[place] [address] 02/26/2023 14:23:27 02/26/2023 15:10:20 Maternal obesity complicating , childbirth and the puerperium, antepartum 1861706736 07 O99.212 Z36.2 Z3A.24 [id number] Ashlie Bah MD [place] [address],[place] [address] 02/26/2023 14:23:45 02/27/2023 10:57:36 Maternal obesity complicating , childbirth and the puerperium, antepartum 2692876759 07 O99.212 Z36.2 Z3A.24 Routine an tenatal care 426844675 Z34.91 [id number] Brianna Manan [place] [address],[place] [address] 03/12/2023 11:49:56 03/12/2023 12:47:37 Maternal obesity complicating , childbirth and the puerperium, antepartum 1276814055 07 O99.212 Z36.2 Z3A.24 [id number] Ashlie Bah MD [place] [address],[place] [address] 03/12/2023 11:54:16 03/12/2023 13:17:06 Maternal obesity complicating , childbirth and the puerperium, antepartum 1147441276 07 O99.212 Z36.2 Z3A.24 Routine an tenatal care 624484295 Z34.91 [id number] Cristal Blanc [place] [address],[place] [address] 03/19/2023 11:46:09 03/19/2023 13:01:54 Maternal obesity complicating , childbirth and the puerperium, antepartum 3219692799 07 O99.212 Z36.2 Z3A.24 [id number] Erika Jamil [place] [address],[place] [address] 03/19/2023 11:46:43 03/20/2023 15:56:32 Routine care 602925338 Z34.92 [id number] Adamaris Arenas [place] [address],[place] [address] 03/19/2023 12:42:51 03/19/2023 14:12:17 Maternal obesity complicating , childbirth and the puerperium, antepartum 9653186024 07 O99.212 Z3A.37 [id number] Brianna Hinkle [place] [address],[place] [address] 03/26/2023 11:21:28 03/26/2023 12:04:45 Maternal obesity complicating , childbirth and the puerperium, antepartum 6240499831 07 O99.212 Z36.2 Z3A.24 [id number] Ashlie Bah MD [place] [address],[place] [address] 03/26/2023 11:21:52 03/26/2023 14:04:48 Maternal obesity complicating , childbirth and the puerperium, antepartum 3840569468 07 O99.212 Z36.2 Z3A.24 Routine an tenatal care 572781877 Z34.91 [id number] Gianna Jay [place] [address],[place] [address] 05/16/2023 13:40:31 05/16/2023 14:22:36 care 139775202 Z39.2 [id number] Inés Pena CNM [place] [address] [address] 11/16/2023 10:57:54 11/16/2023 11:42:35 Amenorrhea 67214117 N91.2 discussed cycle every 3months to avoid hyperplasi a [id number] KAYLA Carballo [place] [address] [address] 01/30/2024 11:46:08 01/30/2024 12:19:36 Contraception care management 914251592 Z30.9 Discussed all BC methodsInt in POP vs Mirena IUDwould like to start POP now and consider IUDrx sent for slynd Discussed all control options in great detail. Pt would like to start POP. She is aware of the risks and benefits. She has contraindi cations to use of OCP or other estrogen containing hormonal therapy. Pt will start her pills on the first day following the start of her period. She is aware it is not effective for control the first month. She is also aware of the importance of taking at the same time every day. Encouraged use of condoms as the pill does not protect against STD's. r/b/a reviewed of Mirena IUD - if desired return to clinic with next period for insertion Time spent in visit is a total of 20 mins with at least 50% of visit consisting of counseling and review of plan of care. Health Concerns Section Related Observation LastModified by Organization Detai ls LastModified Time None Recorded Concern Status LastModified by Organization Details LastModified Time None Recorded Advance Directives Directive N: Payers Encounter Date Sequence Insurance Name Policy Number Policy Alford Covered Member ID Alford Member ID Guarantor Name 03/26/2023 1 [facility] ON OR AFTER 05/26/21 (MEDICAID REPLACEMENT - HMO) Ashlie Messer [id number] Ashlie Messer 03/26/2023 1 [facility] ON OR AFTER 21 (MEDICAID REPLACEMENT - HMO) Ashlie Messer [id number] Ashlie Messer 05/16/2023 1 [facility] ON OR AFTER 21 (MEDICAID REPLACEMENT - HMO) Ashlie Messer [id number] Messer 11/16/2023 1 [facility] ON OR AFTER 05/26/21 (MEDICAID REPLACEMENT - HMO) Ashlie Messer [id number] Ashlie Messer 01/30/2024 1 [facility] ON OR AFTER 05/26/21 (MEDICAID REPLACEMENT - HMO) Ashlie Ayde [id number] Ashlie Ayde Notes Date Note Type Note Provider Name and Address Organization Details Recorded Time 3 text/html VisitReported bypatient.Quality: Context:complications of : none; complications of labor: none; complications: none; feeding choice: breast; good support from partner/family; resumed menstrual bleeding no Associated Symptoms:no abnormal bleeding; no vaginal discharge; no pelvic pain; no constipation; no fecal incontinence; no dysuria; no urinary incontinence; no fever; no problems; no mastitis; normal mood Contraception Plan:permanent sterilization; planning vasectomyNotes:doing well! baby still has red hair! Gianna francis, [facility] 05/18/2023 18:05:50 3 text/html Annual GYNReported bypatient.History:no gynecologic complaints Menstrual cycle:irregular every 1-3 mo no cycle since end august Breast:No breast pain; No breast lump; No nipple discharge Sexual complaints:No sexual complaints; No pain during intercourse; Normal libido Menopausal Symptoms:No menopausal symptoms; Normal vaginal lubrication Psychological symptoms:No depression; No anxiety; No PMDD Preventive measures:Encourage self breast examination; Encourage regular exercise; Encourage no tobacco useNotes:declines bcm, family doing well! Inés Pena CNM [address], [place], [address], [facility] 11/16/2023 11:35:52 4 text/html 28yo [id number] for BC consultcurrently using condomsbreastfeeding daughter, doing wellhas had a Mirena IUD in the past and did well, has also taken POPspap is UTD KAYLA Carballo [address], [place], [address], [facility] 01/30/2024 12:14:29 OBGyn Episode Ob Episode Information Episode Created Date Number of Fetuses Patient Bloodtype Patient rh Status Prepregnancy Weight lbs Domestic Partner Domestic Partner Phone Father Name Concrete Puddler Status 08/08/20 21 1 CLOSED Fetus Data First Name Last Name Admitted to NICU Weight (g) Sex Living Outcome Pediatric Complications Fetus ID Race Codes Race Delivery Type 4110.45 0704 F Full Term [id number] Vaginal Delivery Isai Calculation Initial Isai Date Initial Exam Date Initial Exam Provider Initial Ultrasound Date Last Menstrual Period Date Ultra Sound Weeks Gestation 0 Eighteen To Twenty Week Isai Update Ultra Sound Date Fundal Height At Umbil Quickening Date Ultra Sound Latest Weeks Gestation Final Isai Confirmed By Final Isai Confirmed Date Final Isai Date Ultra Sound Latest Days Gestation 0 0 Menstrual History Last Menstrual Date Menses Monthly On Bcp Conception Prior Menses Frequency Hcg Plus Date Menarche Onset Age Delivery Information Delivery Date Delivery Type Labor Anesthesia Weeks Gestation Incision Type Labor Labor Length Hrs Delivered By Post Complications Tubal Sterilization Discharge Date Comments 7 39.4 GBS+ but didn't get abx during delivery per pt Discharge Information Feeding Method Contraceptive Method Maternal HG B and HCT Levels Ob Episode Information Episode Created Date Number of Fetuses Patient Bloodtype Patient rh Status Prepregnancy Weight lbs Domestic Partner Domestic Partner Phone Father Name Concrete Puddler Status 08/05/20 21 1 CLOSED Fetus Data First Name Last Name Admitted to NICU Weight (g) Sex Living Outcome Pediatric Complications Fetus ID Race Codes Race Delivery Type 3912.23 1 M Full Term [id number] Vaginal Delivery Isai Calculation Initial Isai Date Initial Exam Date Initial Exam Provider Initial Ultrasound Date Last Menstrual Period Date Ultra Sound Weeks Gestation 0 Eighteen To Twenty Week Isai Update Ultra Sound Date Fundal Height At Umbil Quickening Date Ultra Sound Latest Weeks Gestation Final Isai Confirmed By Final Isai Confirmed Date Final Isai Date Ultra Sound Latest Days Gestation 0 0 Menstrual History Last Menstrual Date Menses Monthly On Bcp Conception Prior Menses Frequency Hcg Plus Date Menarche Onset Age Delivery Information Delivery Date Delivery Type Labor Anesthesia Weeks Gestation Incision Type Labor Labor Length Hrs Delivered By Post Complications Tubal Sterilization Discharge Date Comments 6 39.3 Discharge Information Feeding Method Contraceptive Method Maternal HG B and HCT Levels Ob Episode Information Episode Created Date Number of Fetuses Patient Bloodtype Patient rh Status Prepregnancy Weight lbs Domestic Partner Domestic Partner Phone Father Name Concrete Puddler Status 01/09/20 22 1 CLOSED Fetus Data First Name Last Name Admitted to NICU Weight (g) Sex Living Outcome Pediatric Complications Fetus ID Race Codes Race Delivery Type , [place] ous [id number] Isai Calculation Initial Isai Date Initial Exam Date Initial Exam Provider Initial Ultrasound Date Last Menstrual Period Date Ultra Sound Weeks Gestation 0 Eighteen To Twenty Week Isai Update Ultra Sound Date Fundal Height At Umbil Quickening Date Ultra Sound Latest Weeks Gestation Final Isai Confirmed By Final Isai Confirmed Date Final Isai Date Ultra Sound Latest Days Gestation 0 0 Menstrual History Last Menstrual Date Menses Monthly On Bcp Conception Prior Menses Frequency Hcg Plus Date Menarche Onset Age Delivery Information Delivery Date Delivery Type Labor Anesthesia Weeks Gestation Incision Type Labor Labor Length Hrs Delivered By Post Complications Tubal Sterilization Discharge Date Comments 2 8 partial mole Discharge Information Feeding Method Contraceptive Method Maternal HG B and HCT Levels Ob Episode Information Episode Created Date Number of Fetuses Patient Bloodtype Patient rh Status Prepregnancy Weight lbs Domestic Partner Domestic Partner Phone Father Name Concrete Puddler Status 09/26/20 22 1 A Positive 262 CLOSED Fetus Data First Name Last Name Admitted to NICU Weight (g) Sex Living Outcome Pediatric Complications Fetus ID Race Codes Race Delivery Type Mavis 4082.32 8 F true Full Term hand presentation [id number] Vaginal Delivery Problems Problem Notes Problem Name Start Date End Date Resolution Snomed Code Not e Labor problem [id number] precip itous delivery- in car. plan 39w IOL. Maternal obesity complicating , childbirth and the puerperium, antepartum [id number] BMI 39- ante te sting at 34w Isai Calculation Initial Isai Date Initial Exam Date Initial Exam Provider Initial Ultrasound Date Last Menstrual Period Date Ultra Sound Weeks Gestation 04/07/2023 09/26/2022 08/23/2022 07/01/2022 7 Eighteen To Twenty Week Isai Update Ultra Sound Date Fundal Height At Umbil Quickening Date Ultra Sound Latest Weeks Gestation Final Isai Confirmed By Final Isai Confirmed Date Final Isai Date Ultra Sound Latest Days Gestation 0 [id number] 09/26/2022 04/07/20 23 0 Pre-gregg Flowsheet Flowsheet Date 09/26/2022 Méndez Score Blood Edema Fundus Height Fundus Units Glucose Ketones Leukocytes Nitrite Labor Signs Protein Cervic Dilation Cervic Effacement Cervic Station Type Weight in lbs Pre/Post Dialysis Refused BP Diastolic BP Location Tested BP Systolic BP Type Fetus Heart Rate Present Fetus Movement Comments Flowsheet Date 09/26/2022 Méndez Score Blood Edema Fundus Height Fundus Units Glucose Ketones Leukocytes Nitrite Labor Signs Protein Cervic Dilation Cervic Effacement Cervic Station neg none none trace Type Weight in lbs Pre/Post Dialysis Refused Weight 259.271289315051 BP Diastolic BP Location Tested BP Systolic BP Type 76 128 Fetus Heart Rate Present A 165 Fetus Movement A No Comments Ashlie is a 27yo at 12. 3 who presents for care. She delivered her last two in [place], the last of which was a precipitous delivery in the car. She has had her flu shot and COVID series and will do her booster soon. She has depression which has been stable without medications. Normal NT today, will do PNL and NIPT today. We discussed testing for BMI of 39. Flowsheet Date 10/23/2022 Méndez Score Blood Edema Fundus Height Fundus Units Glucose Ketones Leukocytes Nitrite Labor Signs Protein Cervic Dilation Cervic Effacement Cervic Station neg none none trace Type Weight in lbs Pre/Post Dialysis Refused Weight 260.263960709582 BP Diastolic BP Location Tested BP Systolic BP Type 80 122 Fetus Heart Rate Present A 155 Fetus Movement A No Comments Doing fine. No concerns. Fortunato willingham US next visit. Flowsheet Date 11/22/2022 Méndez Score Blood Edema Fundus Height Fundus Units Glucose Ketones Leukocytes Nitrite Labor Signs Protein Cervic Dilation Cervic Effacement Cervic Station Type Weight in lbs Pre/Post Dialysis Refused BP Diastolic BP Location Tested BP Systolic BP Type Fetus Heart Rate Present Fetus Movement Comments Flowsheet Date 11/22/2022 Méndez Score Blood Edema Fundus Height Fundus Units Glucose Ketones Leukocytes Nitrite Labor Signs Protein Cervic Dilation Cervic Effacement Cervic Station neg none none trace Type Weight in lbs Pre/Post Dialysis Refused Weight 258.630791617899 BP Diastolic BP Location Tested BP Systolic BP Type 79 119 Fetus Heart Rate Present Fetus Movement A Yes Comments patient states that having s ome nausea no vomiting, denies questions, anatomy incomplete, plan f/u with US in 4 weeks. precautions reviewed Flowsheet Date 12/19/2022 Méndez Score Blood Edema Fundus Height Fundus Units Glucose Ketones Leukocytes Nitrite Labor Signs Protein Cervic Dilation Cervic Effacement Cervic Station Type Weight in lbs Pre/Post Dialysis Refused BP Diastolic BP Location Tested BP Systolic BP Type Fetus Heart Rate Present Fetus Movement Comments Flowsheet Date 12/19/2022 Méndez Score Blood Edema Fundus Height Fundus Units Glucose Ketones Leukocytes Nitrite Labor Signs Protein Cervic Dilation Cervic Effacement Cervic Station neg trace none trace Type Weight in lbs Pre/Post Dialysis Refused Weight 260.042636059804 BP Diastolic BP Location Tested BP Systolic BP Type 75 118 Fetus Heart Rate Present Fetus Movement A Yes Comments Doing well. Does have some s welling when on her feet all day. No other c/o. U/S today. D.A. not imaged. Anticipate 4 week follow up. Routine ob and 28 week testing in 4 weeks. Flowsheet Date 01/15/2023 Méndez Score Blood Edema Fundus Height Fundus Units Glucose Ketones Leukocytes Nitrite Labor Signs Protein Cervic Dilation Cervic Effacement Cervic Station Type Weight in lbs Pre/Post Dialysis Refused BP Diastolic BP Location Tested BP Systolic BP Type Fetus Heart Rate Present Fetus Movement Comments Flowsheet Date 01/15/2023 Méndez Score Blood Edema Fundus Height Fundus Units Glucose Ketones Leukocytes Nitrite Labor Signs Protein Cervic Dilation Cervic Effacement Cervic Station neg trace none trace Type Weight in lbs Pre/Post Dialysis Refused Weight 262.683697178007 BP Diastolic BP Location Tested BP Systolic BP Type 69 125 Fetus Heart Rate Present Fetus Movement A Yes Comments Doing well. Ultrasound today . Anatomy complete. GTT today. Encouraged tdap. Flowsheet Date 01/29/2023 Méndez Score Blood Edema Fundus Height Fundus Units Glucose Ketones Leukocytes Nitrite Labor Signs Protein Cervic Dilation Cervic Effacement Cervic Station trace 35 Type Weight in lbs Pre/Post Dialysis Refused Weight 261.06119844088 BP Diastolic BP Location Tested BP Systolic BP Type 73 114 Fetus Heart Rate Present A 140 Fetus Movement A Yes Comments Doing ok. SOme hip pain and occasional dizzy spells, resolve with rest. Does have slight anemia, will try iron every other day. GCT was wnl. Discussed and encouraged Tdap. Will add US next visit for S>D. Ante testing to start at 34w- scheduled. Flowsheet Date 02/12/2023 Méndez Score Blood Edema Fundus Height Fundus Units Glucose Ketones Leukocytes Nitrite Labor Signs Protein Cervic Dilation Cervic Effacement Cervic Station Type Weight in lbs Pre/Post Dialysis Refused BP Diastolic BP Location Tested BP Systolic BP Type Fetus Heart Rate Present Fetus Movement Comments Flowsheet Date 02/12/2023 Méndez Score Blood Edema Fundus Height Fundus Units Glucose Ketones Leukocytes Nitrite Labor Signs Protein Cervic Dilation Cervic Effacement Cervic Station 32 Type Weight in lbs Pre/Post Dialysis Refused Weight 266.822013902446 BP Diastolic BP Location Tested BP Systolic BP Type 72 R arm 121 sitting Fetus Heart Rate Present A 145 Fetus Movement A Yes Comments No complaints, no problems, routine care, starting monitoring at 34 weeks for obesity Flowsheet Date 02/26/2023 Méndez Score Blood Edema Fundus Height Fundus Units Glucose Ketones Leukocytes Nitrite Labor Signs Protein Cervic Dilation Cervic Effacement Cervic Station Type Weight in lbs Pre/Post Dialysis Refused BP Diastolic BP Location Tested BP Systolic BP Type Fetus Heart Rate Present Fetus Movement Comments Flowsheet Date 02/26/2023 Méndez Score Blood Edema Fundus Height Fundus Units Glucose Ketones Leukocytes Nitrite Labor Signs Protein Cervic Dilation Cervic Effacement Cervic Station neg trace none trace Type Weight in lbs Pre/Post Dialysis Refused Weight 268.881740242196 BP Diastolic BP Location Tested BP Systolic BP Type 78 127 Fetus Heart Rate Present A 150 Fetus Movement A Yes Comments Doing well. Would like 39w I OL to try to avoid out of hospital delivery. Planning NCB. Will schedule IOL in next couple weeks. NST reactive. Precautions given. Flowsheet Date 03/12/2023 Méndez Score Blood Edema Fundus Height Fundus Units Glucose Ketones Leukocytes Nitrite Labor Signs Protein Cervic Dilation Cervic Effacement Cervic Station Type Weight in lbs Pre/Post Dialysis Refused BP Diastolic BP Location Tested BP Systolic BP Type Fetus Heart Rate Present Fetus Movement Comments Flowsheet Date 03/12/2023 Méndez Score Blood Edema Fundus Height Fundus Units Glucose Ketones Leukocytes Nitrite Labor Signs Protein Cervic Dilation Cervic Effacement Cervic Station neg trace 39 none trace 0cm 30% -3 Type Weight in lbs Pre/Post Dialysis Refused Weight 272.850002710527 BP Diastolic BP Location Tested BP Systolic BP Type 76 132 Fetus Heart Rate Present A 140 Fetus Movement A Yes Comments Doing fine. GBS done and dis cussed. Offered IOL at 39.0 with KP since history of fast labor, I am not available until 39.4. Pt would like 39.4 with me unless cervix seeming like she will labor sooner. Today closed, soft, anterior by pubic bone. Very irregular contractions. Flowsheet Date 03/19/2023 Méndez Score Blood Edema Fundus Height Fundus Units Glucose Ketones Leukocytes Nitrite Labor Signs Protein Cervic Dilation Cervic Effacement Cervic Station Type Weight in lbs Pre/Post Dialysis Refused BP Diastolic BP Location Tested BP Systolic BP Type Fetus Heart Rate Present Fetus Movement Comments Flowsheet Date 03/19/2023 Méndez Score Blood Edema Fundus Height Fundus Units Glucose Ketones Leukocytes Nitrite Labor Signs Protein Cervic Dilation Cervic Effacement Cervic Station Type Weight in lbs Pre/Post Dialysis Refused BP Diastolic BP Location Tested BP Systolic BP Type Fetus Heart Rate Present Fetus Movement Comments Flowsheet Date 03/19/2023 Méndez Score Blood Edema Fundus Height Fundus Units Glucose Ketones Leukocytes Nitrite Labor Signs Protein Cervic Dilation Cervic Effacement Cervic Station Type Weight in lbs Pre/Post Dialysis Refused BP Diastolic BP Location Tested BP Systolic BP Type Fetus Heart Rate Present Fetus Movement Comments Flowsheet Date 03/26/2023 Méndez Score Blood Edema Fundus Height Fundus Units Glucose Ketones Leukocytes Nitrite Labor Signs Protein Cervic Dilation Cervic Effacement Cervic Station Type Weight in lbs Pre/Post Dialysis Refused BP Diastolic BP Location Tested BP Systolic BP Type Fetus Heart Rate Present Fetus Movement Comments Flowsheet Date 03/26/2023 Méndez Score Blood Edema Fundus Height Fundus Units Glucose Ketones Leukocytes Nitrite Labor Signs Protein Cervic Dilation Cervic Effacement Cervic Station 37 2cm 50% -2 Type Weight in lbs Pre/Post Dialysis Refused Weight 272.133126787637 BP Diastolic BP Location Tested BP Systolic BP Type 80 136 Fetus Heart Rate Present A 140 Fetus Movement Comments Doing well. SOme contraction s. Changed mind and doesn't think she will make it to next sun induction, wants to move up with Erika, scheduled for 39.0 on Sat with Erika. Precautions given, NSt reactive. Menstrual History Last Menstrual Date Menses Monthly On Bcp Conception Prior Menses Frequency Hcg Plus Date Menarche Onset Age 0807/01/2022 Genetic Screening And Infection History Question Response Note Mental Retardation/Autism false Patient's Age Will Be 35 Years Or Older At Estim ated Date of Delivery false Thalassemia (Niuean, Estonian, Mediterranean, Or Background): MCV < 80 false Neural Tube Defect (Meningomyelocele, Spina Bifi da, Or Anencephaly) false Congenital Heart Defect false Down Syndrome false Jabier-Sachs (eg, Nondenominational, Cajun, Bel[place]ian-[place]) f alse Kee Disease false Sickle Cell Disease Or Trait () false Hemophilia Or Other Blood Disorders false Muscular Dystrophy false Cystic Fibrosis false [place]'s [place] false Intellectual Disability/Autism false If Yes, Was Person Tested For Fragile X? false Other Inherited Genetic Or Chromosomal Disorder false Maternal Metabolic Disorder (eg, Type 1 Diabetes , PKU) false Patient Or Baby's Father Had A Child With Defects Not Listed Above false Recurrent Loss, Or A Stillbirth false Medications (including Suppl ements, Vitamins, Herbs, OTC Drugs), Illicit/Recreational Drugs, Alcohol true If Yes, Agent(s) And Strength/Dosage false Any Other Genetic History false Live With Someone With TB Or Exposed To TB false Patient Or Partner Has History Of Genital Herpes false Rash Or Viral Illness Since Last Menstrual Perio d false History Of STD, Gonorrhea, Chlamydia, HPV, Syphi lis false Other Infection History false History of HIV false History of Hepatitis false Prior GBS-infected child false Hemoglobinopathy Or Carrier false Other Structural Defect false Recent Travel History Outside of Country false Delivery Information Delivery Date Delivery Type Labor Anesthesia Weeks Gestation Incision Type Labor Labor Length Hrs Delivered By Post Complications Tubal Sterilization Discharge Date Comments 3 Induce d None 39 false Inés Pena CNM Maternal Obesity Discharge Information Feeding Method Contraceptive Method Maternal HG B and HCT Levels
--- OUTSIDE RECORDS SUMMARY | 2025-01-20 08:39 | XMS_ITS | Clinical Summary ---
Author Organization [facility] Address [address] [place] [address] Care Team Providers Care Quality Control Microbiologist Name Role Phone Ashlie Bah MD Primary Care Provider [phone]- [phone] Allergies No known active allergies Active Problems Problem Noted Date Diagnosed Date Boil of groin 01/20/2023 Overview (01/20/2023): Right side. Source of her chief complaint of blood loss. On exam it is a boil draining slight serosanguineous fluid. It was opened, cultured and drained. 29 weeks gestation of (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 Gender Identity Not on file Sexual Orientation Not on file Plan of Treatment Health Maintenance Due Date Last Done Comments Cervical Cancer Screening Pap Smear (Age 21 to 29) Every 3 Years 1997 Cervical Cancer Screening 1997 Annual Physical 2000 Hepatitis C 2015 COVID-19 Vaccine ( season) 2024 03/09/2022, 02/07/2022 Influenza Adult (#1) 2024 09/15/2022, 08/28/2017, 09/21/2015 DTaP, Tdap and Td Vaccines (7 - Td or Tdap) 03/13/2026 03/13/2016, 08/02/2011, 03/05/2002, Additional history exists Hepatitis B Vaccines Completed 04/30/1998, 1997, 1997 HPV Vaccines Aged Out No longer eligi ble based on patient's age to complete this topic Meningococcal B Vaccine Aged Out No l onger eligible based on patient's age to complete this topic Meningococcal Vaccine Aged Out No scotty farooq eligible based on patient's age to complete this topic Pneumococcal Vaccine: Pediatrics (0 to 5 Years) and At-Risk Patients (6 to 64 Years) Aged Out No longer eligible based on patient's age to complete this topic RSV Immunizations Under 20 Months Aged Out No longer eligible based on patient's age to complete this topic Insurance [place] Care Teams Quality Control Microbiologist Relationship Specialty Start Date End Date Ashlie Bah MD [address] [place] [address] PCP - General OBGYN 01/20/23
--- OUTSIDE RECORDS SUMMARY | 2025-01-20 08:39 | XMS_ITS | Encounter Summary ---
Author Organization [facility] Address [address] [place] [address] Care Team Providers Care Biosolids Management Technician Name Role Phone Ashlie Bah MD Primary Care Provider [phone]- [phone] Encounter Details Date Type Department Care Team (Late st Contact Info) Description 05/03/2019 Abstract SFL CONVERSION [address] [place] [address] , Generic Conversion, Social History Tobacco Use Types Packs/Day Years Used Date Smoking Tobacco: Never Assessed Comments Unknown Sex and Gender Information Value Date Recorded Sex Assigned at Not on file 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
== END 2025-01-20 08:20 | disposition home or self-care (01) ==
LOC: CHSIMG 08:23
PROVIDERS: PCP Family Medicine; Visit Provider Registered Nurse
DX: R10.11 Right upper quadrant pain (principal); K80.20 Calculus of gallbladder without cholecystitis without obstruction
CPT/HCPCS: 76705

== ENCOUNTER 2025-05-18 12:03 | Outpatient (CLI) | payer OTHER, SELFPAY ==
--- NOTE | 2025-05-21 11:44 | WPDHOLTEREM ---
Holter/Event Monitor Holter/Event Monitor Date of procedure: 05/18/25 Holter/Event Procedure: 48 Hr Holter Monitor Indications: PVC's Conclusion: 1. 48 hour holter monitor on 05/18/25. 2. Underlying rhythm is sinus rhythm. HR range 46-115 bpm; average 79 bpm. HR at 46 bpm was at 5:40 am. 3. There are 161 premature supraventricular complexes. No supraventricular tachycardia. 4. There are 21,973 premature ventricular complexes, 2,297 ventricular couplets, 5 ventricular triplets, 46,218 ventricular bigeminy, and 5,493 ventricular trigeminy. No ventricular tachycardia. 5. No significant pauses greater than 2 seconds. 6. Patient reports 4 episodes of symptoms of chest tightness, dizziness which demonstrate sinus rhythm, HR range 82-95 with 4 episodes with ventricular bigeminy
== END 2025-05-18 12:04 | disposition home or self-care (01) ==
LOC: CHSCARD 12:10
PROVIDERS: PCP Registered Nurse; Visit Provider Registered Nurse
DX: I49.3 Ventricular premature depolarization (principal)
CPT/HCPCS: 93225; 93226

== ENCOUNTER 2025-06-02 12:27 | Outpatient (CLI) | payer OTHER, SELFPAY ==
--- OUTSIDE RECORDS SUMMARY | 2025-06-02 12:33 | XMS_ITS | Data Portability ---
Author Organization [facility] Address [address] [place] [address] [place] [address] Care Team Providers Care Step Down Specialist Name Role Phone CARRIE SPENCE Primary Care Provider [phone] Assessment Encounter Date Assessment Date Assessment LastModified [...] recorded. Imaging non-stres s test 023 023 [email or web address] [address], [address], [place], [address], 12:04:45 Medication Orders Slynd 4 mg (28) tablet 024 024 [facility] [address] [place], [address], 4 12:07:20 Provera 10 mg tablet 023 023 jarvis [facility] [address] [place], [address], 4 11:55:39 Patient TargetsNo targets recorded. Patient InstructionsNo instructions recorded. Reason for Referral None Reported. Results Created Date Observation Date Name Description Value Unit Range Abnormal Flag Note LastModifiedBy Organization Detail LastModifiedTime 03/12/20 23 03/12/2023 CULTU RE: GROUP B STREP SCREE N, [...] t Abnor mal: No Resul ting Lab: [facility] [address] [facility] [address] Tel: CULTU RE ----- ----- ----- --- No Group B strep isola rowan at 2 days (pema ctive broth enhan cemen t) Not Available [facility] (Lab) [address] [facility], [place], [address], 03/15/2023 15:08:05 11/16/20 23 11/16/2023 IMAGE GUIDE D PAP, REFLE X HPV IF ASCUS ONLY image guided Pap, reflex HPV ASCUS only SEE RESULT S BELOW CASE REPOR T: Cytol ogy Gynec ologi lucinda Repor t Case: [id number] Autho lawanda g Provi shannon: Inés Greene NP Colle cted: [...] is recom lisa d, as clini stephany warra nted. Not Available [facility] (Lab) [address], [place], [address], 11/22/2023 15:07:23 02/27/20 23 02/26/2023 non-s tress test No observ ation record ed. [email or web address] [address], [place], [address], 02/26/2023 15:09:40 03/12/20 23 03/12/2023 non-s tress test No observ ation record ed. [email or web address] [facility] [address], [place], [address], 03/12/2023 12:40:17 03/19/20 23 03/19/2023 non-s tress test No observ ation record ed. [email or web address] [facility] [address], [place], [address], 03/19/2023 20:31:26 03/19/20 23 03/19/2023 US, obste tric, follo w-up No observ ation record ed. [email or web address] [facility] [address], [place], [address], 03/19/2023 17:48:48 03/19/20 23 03/19/2023 US, obste tric, bioph ysica l profi le + non-s tress test No observ ation record ed. [email or web address] [facility] [address], [place], [address], 03/19/2023 17:48:39 04/03/19/2023 US, obste tric, follo w-up No observ ation record ed. [email or web address] [address], [place], [address], 03/21/2023 11:27:07 03/26/20 23 03/26/2023 non-s tress test No observ ation record ed. [email or web address] [facility] [address], [place], [address], 03/26/2023 11:57:28 Result Notes None recorded. Problems Name Problem SNOMED Code Status Onset Date Resolution Date Notes Provider Name and Address Organization Details Recorded Time History of depressi on 686259214 Active 2021 Ashlie Bah MD [address], [place], [address], [facility] 2 11:43:43 Pregnanc y 42038708 Completed 202104/12/2023 [facility] 3 16:35:20 Labor problem 05900428 Completed precipit ous delivery - in car. [facility] 39w [facility] 3 16:35:15 Maternal obesity complica ting pregnanc y, childbir th and the puerperi um, antepart um 9489395468 07 Completed BMI 39- ante testing at 34w [facility] 3 16:35:15 Problem Notes None recorded. Procedures Surgical History Date Name Laterality Status Provider Name and Address Organization Details Recorded Time 11/16/20 Date of Last Pap Smear completed Gianna Jay [facility] 11/16/2023 14:09:57 01/11/20 22 SUCTION DILATION & CURETTAGE (SURG) completed Agueda Duncan [facility] 01/12/2022 10:29:28 11/26/19 05 Tonsillectomy completed Gianna Pierre [facility] 11/22/2022 12:18:00 Imaging Results None recorded. Procedure Notes None recorded. Medical Equipment None [...] Body mass index (BMI) Body weight Systolic And Diastolic Provider Name and Address Organization Details Last Updated DateTime 01/30/2024 172.72 cm 38.9 kg/m2 878697.65 g 136/86 mm[Hg] Maria De Jesus Poole [facility] 01/30/2024 11:55:19 Date Recorded Body weight Provider Name an d Address Organization Details Last Updated DateTime 03/26/2023 788697.53963 g Ashlie Bah MD [address], [place], [address], [facility] 03/26/2023 13:36:20 Date Recorded Body height Body mass index (BMI) Systolic And Diastolic Provider Name and Address Organization Details Last Updated DateTime 03/26/2023 172.72 cm 41.4 kg/m2 136/80 mm[Hg] Lalita Mccray [facility] 03/26/2023 11:55:27 Date Recorded Body height Body mass index (BMI) Body weight Systolic And Diastolic Provider Name and Address Organization Details Last Updated DateTime 05/16/2023 172.72 cm 36.9 kg/m2 191410.95 g 127/86 mm[Hg] Gianna Jay [facility] 05/16/2023 14:05:49 Date Recorded Body height Body mass index (BMI) Body weight Systolic And Diastolic Provider Name and Address Organization Details Last Updated DateTime 11/16/2023 172.72 cm 37.4 kg/m2 440013.72 g 126/74 mm[Hg] Gianna Jay [facility] 11/16/2023 11:12:42 Social History Question Answer Notes LastModified by Organizat ion Details LastModified Time Tobacco Smoking Status Never Smoker Gianna Jay [facility], [facility] 05/16/2023 14:06:00 Do You Have An Advance Directive? No [email or web address] Information n ot available 08/08/2021 If You Are , What Was Your Level Of Alcohol Consumption Prior To ? Occasional [email or web address] Information not available 05/16/2023 How Many Years Have You Consumed Alcohol? 4 Information not available 08/08/2021 Are You Blind Or Do You Have Difficulty Seeing? No [email or web address] Information n ot available 08/08/2021 What Is Your Level Of Caffeine Consumption? Moderate [email or web address] Information not available 03/19/2023 How Much Tobacco Do You Chew? None Information not available 08/08/2021 In The 14 Days Before Symptom Onset, Have You Had Close Contact With A Laboratory-confirm ed COVID-19 While That Case Was Ill? No [email or web address] Information n ot available 08/08/2021 In The 14 Days Before Symptom Onset, Have You Had Close Contact With A Person Who Is Under Investigation For COVID-19 While That Person Was Ill? No [email or web address] Information not available 08/08/2021 Have You Been To An Area Known To Be High Risk For COVID-19? No [email or web address] Information not available 08/08/2021 Are You Deaf Or Do You Have Serious Difficulty Hearing? No [email or web address] Information not available 08/08/2021 What Type Of Diet Are You Following? REGULAR [email or web address] Information n ot available 08/08/2021 What Is The Highest Grade Or Level Of School You Have Completed Or The Highest Degree You Have Received? [id number] [email or web address] Information not available 08/08/2021 Are There Any Guns Present In Your Home? Yes [email or web address] Information not available 12/19/2022 Do You Use Protection During Sex? Usually [email or web address] Information not available 08/08/2021 Do You Use Your Seat Belt Or Car Seat Routinely? Yes [email or web address] Information not available 08/08/2021 Do You Have Smoke And Carbon Monoxide Detectors In Your Home? Yes [email or web address] Information not available 08/08/2021 How Much Tobacco Do You Smoke? No [email or web address] Information not available 08/08/2021 Do You Use Sunscreen Routinely? Yes [email or web address] Information not available 08/08/2021 Have You Used IV Drugs? No [email or web address] Information not available 08/08/2021 Do You Have Difficulty Walking Or Climbing Stairs? No [email or web address] Information not available 05/16/2023 Sex: Unknown Functional Status Question Answer Note LastModified by Organizat ion Details LastModified Time Do you use any illicit or recreational drugs? No [email or web address] Information not available 08/08/2021 What is your level of alcohol consumption? Occasional [email or web address] Information not available 05/16/2023 Are you able to walk? YESWOREST [email or web address] Information not available 08/08/2021 Are you able to care for yourself? Yes [email or web address] Information n ot available 05/16/2023 Do you have difficulty dressing or bathing? No Information not available 05/16/2023 What is your exercise level? Moderate [email or web address] Information not available 08/08/2021 Mental Status Question Answer Note LastModified by Organization D etails LastModified Time Do you feel stressed (tense, restless, nervous, or anxious, or unable to sleep at night)? [id number] [email or web address] Information not available 05/16/2023 Family History Relationship Description Onset Age of this Age Resolved Age Notes LastModified by Organization Details LastModified Time Paternal Grandmother Malignant tumor of breast [email or web address] Not available 2020 14:59:25 Notes:Cancer risk form compl eted on 08/05/2021 Medical History Condition Response Allergies (Food, seasonal, environmental ) N Other N Breast Cancer N Drug/Latex Allergies/Reactions N Blood Transfusion N Dermatologic Disorders N Lung Disease N Defects or Inherited Disease N Breast Problem N Gestational Diabetes N Hematologic disorders N Anesthesia Complications N History of STI N Deep Vein Thrombosis N Polycystic ovary syndrome N Anxiety Disorder Y Autoimmune disease N Arthritis N Infertility N Polyps N Acid Reflux (GERD) N History of abnormal pap N Cancer N Stroke N Varicosities N Neurologic/Epilepsy N Endometriosis N High Cholesterol N Headaches N Fibromyalgia N Kidney Disease N Heart Problems N Kidney or Bladder Problems N Thyroid Problems N GI Problems N Eating Disorder N Anemia N Art (IVF or FET) N Psychiatric Illness N Ovarian Cancer N Diabetes N Pulmonary (TB, Asthma) N Hepatitis/Liver Disease [...] SNOMED-CT Code Diagnosis ICD10 Code Diagnosis Note [id number] Erika Jamil CNM [facility] [address] [address] 08/08/2021 11:18:30 08/08/2021 12:47:27 Contraception care management 382465698 Z30.9 Discussed all control options in great [...] read and signed. Pt verbalized understand [place]. [id number] [facility] [address],[place] [address] 11/28/2021 15:59:22 11/29/2021 18:10:01 test positive 966579317 Z32.01 Risk factors addressed: Tobacco Cessation, Safe [...] annual well woman examinatio n and address [facility] . [id number] Julio Alberts MD [facility] [address],[place] [address] 11/28/2021 16:01:16 11/28/2021 16:55:44 screening 684686833 Z36.87 [id number] Ashlie Bah MD [facility] [address],[facility] [place] [address] 01/09/2022 11:44:02 01/09/2022 12:13:22 Missed miscarriage 04979750 O02.1 Z3A.12 [id number] Ashlie Bah MD [facility] [address],[place] [address] 01/09/2022 11:44:20 01/09/2022 12:29:36 Missed miscarriage 25155991 O02.1 Z3A.12 [id number] Ashlie Bah MD [facility] [address],[place] [address] 01/12/2022 09:41:33 01/12/2022 09:42:52 [id number] Ashlie Bah MD [facility] [address],[place] [address] 01/18/2022 14:52:04 01/19/2022 14:36:21 Missed miscarriage 43621255 O02.1 Z3A.12 Partial hy datidiform mole 071797710 O01.1 Contracept ion care management 225810787 Z30.9 [id number] Ashlie Bah MD [facility] [address],[place] [address] 08/23/2022 10:26:13 08/23/2022 12:09:28 [id number] Ashlie Bah MD [facility] [address] [address] 08/23/2022 10:26:42 08/23/2022 12:02:59 Past history of molar 4459372201 9761278 Z87.59 test positive 020207710 Z32.01 History of depression 16 5427913 Z86.59 Maternal o besity complicating , childbirth and the puerperium, antepartum 5511146370 07 O99.211 [id number] MD Emilie [place] [address],[place] [address] 09/26/2022 14:50:22 09/27/2022 15:10:19 screening 026019770 Z36.82 [id number] MD Emilie [place] [address],[place] [address] 09/26/2022 14:50:47 09/26/2022 16:29:02 Routine care 692545080 Z34.91 History of depression 16 2883011 Z86.59 Maternal o besity complicating , childbirth and the puerperium, antepartum 4861453275 07 O99.211 [id number] Ashlie Bah MD [facility] [address],[place] [address] 10/23/2022 10:48:27 10/24/2022 18:06:09 Routine care 344228831 Z34.91 [id number] Julio Alberts MD [facility] [address],[place] [address] 11/22/2022 10:55:59 11/22/2022 12:41:35 screening 177079436 Z36.3 [id number] Inés Pena [facility] [address],[place] [address] 11/22/2022 10:56:49 11/22/2022 12:29:42 Routine care 110443077 Z34.92 [id number] Julio Alberts MD [facility] [address],[place] [address] 12/19/2022 11:00:33 12/19/2022 12:27:59 Maternal obesity complicating , childbirth and the puerperium, antepartum 2894157230 07 O99.212 Z36.2 Z3A.24 [id number] Erika Jamil [facility] [address],[place] [address] 12/19/2022 11:00:52 12/19/2022 15:22:44 Routine care 522104504 Z34.92 [id number] Ashlie Bah MD [facility] [address],[place] [address] 01/15/2023 12:00:51 01/15/2023 12:50:21 screening 296787468 Z36.2 O99.213 Z3A.28 [id number] Erika Jamil [facility] [address],[place] [address] 01/15/2023 12:01:48 01/15/2023 18:25:18 Routine care 619687523 Z34.92 [id number] Ashlie Bah MD [facility] [address],[place] [address] 01/29/2023 12:13:16 01/31/2023 15:13:23 Maternal obesity complicating , childbirth and the puerperium, antepartum 8388216448 07 O99.212 Z36.2 Z3A.24 Routine an tenatal care 770804670 Z34.91 [id number] Ashlie Bah MD [facility] [address],[place] [address] 02/12/2023 10:54:19 02/12/2023 11:58:22 Uterine size for dates discrepancy 995487299 O26.843 O99.213 Z3A.32 [id number] Julio Alberts MD [facility] [address],[place] [address] 02/12/2023 10:55:10 02/12/2023 12:37:56 Routine care 621508688 Z34.83 [id number] MD Byron Hogan [address],[place] [address] 02/26/2023 14:23:27 02/26/2023 15:10:20 Maternal obesity complicating , childbirth and the puerperium, antepartum 8902270202 07 O99.212 Z36.2 Z3A.24 [id number] MD Emilie [place] [address],[place] [address] 02/26/2023 14:23:45 02/27/2023 10:57:36 Maternal obesity complicating , childbirth and the puerperium, antepartum 9240549251 07 O99.212 Z36.2 Z3A.24 Routine an tenatal care 256824411 Z34.91 [id number] MD Emilie [place] [address],[place] [address] 03/12/2023 11:49:56 03/12/2023 12:47:37 Maternal obesity complicating , childbirth and the puerperium, antepartum 1073802839 07 O99.212 Z36.2 Z3A.24 [id number] Ashlie Bah MD [facility] [address],[place] [address] 03/12/2023 11:54:16 03/12/2023 13:17:06 Maternal obesity complicating , childbirth and the puerperium, antepartum 0056568647 07 O99.212 Z36.2 Z3A.24 Routine an tenatal care 154248166 Z34.91 [id number] Julio Alberts MD [facility] [address],[place] [address] 03/19/2023 11:46:09 03/19/2023 13:01:54 Maternal obesity complicating , childbirth and the puerperium, antepartum 7619003717 07 O99.212 Z36.2 Z3A.24 [id number] Erika Jamil [facility] [address],[place] [address] 03/19/2023 11:46:43 03/20/2023 15:56:32 Routine care 562889083 Z34.92 [id number] Julio Alberts MD [facility] [address],[place] [address] 03/19/2023 12:42:51 03/19/2023 14:12:17 Maternal obesity complicating , childbirth and the puerperium, antepartum 0295457022 07 O99.212 Z3A.37 [id number] MD Emilie [place] [address],[place] [address] 03/26/2023 11:21:28 03/26/2023 12:04:45 Maternal obesity complicating , childbirth and the puerperium, antepartum 6106358982 07 O99.212 Z36.2 Z3A.24 [id number] Ashlie Bah MD [facility] [address],[place] [address] 03/26/2023 11:21:52 03/26/2023 14:04:48 Maternal obesity complicating , childbirth and the puerperium, antepartum 0835950524 07 O99.212 Z36.2 Z3A.24 Routine an tenatal care 630902731 Z34.91 [id number] Inés Pena [facility] [address],[place] [address] 05/16/2023 13:40:31 05/16/2023 14:22:36 care 568587849 Z39.2 [id number] Inés Pena [facility] [address],[place] [address] 11/16/2023 10:57:54 11/16/2023 11:42:35 Amenorrhea 73962750 N91.2 discussed cycle every 3months to avoid hyperplasi a [id number] Natalie Foss [facility] [address],[place] [address] 01/30/2024 11:46:08 01/30/2024 12:19:36 Contraception care management 417654402 Z30.9 Discussed all BC methodsInt in POP [...] None Recorded Advance Directives Directive N: Payers Insurance Date Sequence Insurance Name Policy Number Policy Alford Covered Member ID Alford Member ID Guarantor Name 10/27/2024 1 [facility] - DOS ON OR AFTER 21 (MEDICAID REPLACEMENT - HMO) Ashlie Ayde [id number] Ashlie Messer Notes Date Note Type Note Provider Name [...] baby still has red hair! Gianna francis, [facility] 05/18/2023 18:05:50 3 text/html Annual GYNReported [...] well! Inés Pena CNM [address], [place], [address], [facility] 11/16/2023 11:35:52 4 text/html 28yo [id number] for BC consultcurrently using condomsbreastfeeding daughter, doing wellhas had a Mirena IUD in the past and did well, has also taken POPspap is UTD KAYLA Carballo [address], [place], [address], [facility] 01/30/2024 12:14:29 OBGyn Episode Ob Episode Information Episode Created Date Number of Fetuses Patient Bloodtype Patient rh Status Prepregnancy Weight lbs Domestic Partner Domestic Partner Phone Father Name Concrete Craftsman Status 08/08/20 21 1 CLOSED Fetus Data First Name Last Name Admitted to NICU Weight (g) Sex Living Outcome Pediatric Complications Fetus ID Race Codes Race Delivery Type 4110.45 0704 F Full Term 82597 Vaginal Delivery Isai Calculation Initial Isai Date [...] Partner Domestic Partner Phone Father Name Concrete Craftsman Status 08/05/20 21 1 CLOSED Fetus Data First Name Last Name Admitted to NICU Weight (g) Sex Living Outcome Pediatric Complications Fetus ID Race Codes Race Delivery Type 3912.23 1 M Full Term 72180 Vaginal Delivery Isai Calculation Initial Isai Date [...] Partner Domestic Partner Phone Father Name Concrete Craftsman Status 01/09/20 22 1 CLOSED Fetus Data First Name Last Name Admitted to NICU Weight (g) Sex Living Outcome Pediatric Complications Fetus ID Race Codes Race Delivery Type , Spontane ous 00167 Isai Calculation Initial Isai Date Initial Exam [...] Partner Domestic Partner Phone Father Name Concrete Craftsman Status 09/26/20 22 1 A Positive 262 CLOSED Fetus Data First Name Last Name Admitted to NICU Weight (g) Sex Living Outcome Pediatric Complications Fetus ID Race Codes Race Delivery Type Mavis 4082.32 8 F true Full Term hand presentation 29551 Vaginal Delivery Problems Problem Notes Problem Name Start Date End Date Resolution Snomed Code Not e Labor problem [id number] precip itous delivery- in car. plan 39w IOL. Maternal obesity complicating , childbirth and the puerperium, antepartum 851789806143 BMI 39- ante te sting at 34w [...] Date Ultra Sound Latest Days Gestation 0 [email or web address] 09/26/2022 04/07/20 23 0 Pre- Flowsheet Flowsheet Date 09/26/2022 Méndez Score Blood [...] Weight in lbs Pre/Post Dialysis Refused Weight 259.042262893964 BP Diastolic BP Location Tested BP Systolic BP Type 76 128 Fetus Heart Rate Present A 165 Fetus Movement A No Comments Ashlie is a 27yo at 12. 3 who presents for care. She delivered her last two in [place], the last of which was a precipitous [...] Weight in lbs Pre/Post Dialysis Refused Weight 260.941127173042 BP Diastolic BP Location Tested BP Systolic [...] Weight in lbs Pre/Post Dialysis Refused Weight 258.666501453244 BP Diastolic BP Location Tested BP Systolic [...] Weight in lbs Pre/Post Dialysis Refused Weight 260.239295063072 BP Diastolic BP Location Tested BP Systolic [...] Weight in lbs Pre/Post Dialysis Refused Weight 262.575171608418 BP Diastolic BP Location Tested BP Systolic [...] Weight in lbs Pre/Post Dialysis Refused Weight 261.42619520181 BP Diastolic BP Location Tested BP Systolic [...] Weight in lbs Pre/Post Dialysis Refused Weight 266.296062376203 BP Diastolic BP Location Tested BP Systolic [...] Weight in lbs Pre/Post Dialysis Refused Weight 268.362148927893 BP Diastolic BP Location Tested BP Systolic [...] Weight in lbs Pre/Post Dialysis Refused Weight 272.328260395695 BP Diastolic BP Location Tested BP Systolic [...] Weight in lbs Pre/Post Dialysis Refused Weight 272.229969540696 BP Diastolic BP Location Tested BP Systolic BP Type 80 136 Fetus Heart Rate Present A 140 Fetus Movement Comments Doing well. SOme contraction s. Changed mind and doesn't think she will make it to next wed induction, wants to move up with Erika, [...] Estim ated Date of Delivery false Thalassemia (Tajik, British, Mediterranean, Or Background): MCV < 80 false Neural Tube Defect (Meningomyelocele, Spina Bifi da, Or Anencephaly) false Congenital Heart Defect false Down Syndrome false Jabier-Sachs (eg, Methodist, Cajun, Lithuanian-Jericho) f alse Kee Disease false Sickle Cell Disease Or Trait () false Hemophilia Or Other Blood Disorders false Muscular Dystrophy false Cystic Fibrosis false Tasha's Chorea false Intellectual Disability/Autism false If Yes, [...]
--- OUTSIDE RECORDS SUMMARY | 2025-06-02 12:33 | XMS_ITS | Encounter Summary ---
Author Organization [facility] Address [address] [place] [id number] Care Team Providers Care Content Management Consultant Name Role Phone Rex Lopez NP Primary Care Provi shannon Merlene Jara MD Unavailable Encounter Details Date Type Department Care Team (Late Contact Info) Description 05/03/2019 Abstract [facility] [address] [place] [address] , Generic Conversion, Social History Tobacco Use Types Packs/Day Years Used Date Smoking Tobacco: Never Assessed Comments Unknown Sex and Gender Information Value Date Recorded Sex Assigned at Female 02/04/2025 9:20 AM CDT 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 Gender Identity Not on file Sexual Orientation Not on file documented as of this encounter Plan of Treatment Upcoming Encounters Date Type Department Care Team (Late Contact Info) Description 06/05/2025 9:00 AM CDT Hospital Encounter [facility] Non Invasive Cardiology - [facility] [address] [place] [address] Merlene Jara MD [address] [place], [place] [id number] 08/24/2025 3:15 PM CDT Office Visit [facility] [address] [place] [address] Merlene Jara MD [address] [place], [place] [phone] documented as of this encounter Visit Diagnoses Not on filedocumented in this encounter Care Teams Content Management Consultant Relationship Specialty Start Date End Date Rex Lopez NP [address] [place] [phone] PCP - General Nurse Practitioner Family 05/22/25 Merlene Jara MD [address] [place] [address] Consulting Physician CARDIOVASCULAR DISEASE 05/22/25 documented as of this encounter
--- OUTSIDE RECORDS SUMMARY | 2025-06-02 12:33 | XMS_ITS | Clinical Summary ---
Author Organization [facility] Address [facility] [place] [address] Care Team Providers Care Bobbin Loose End Finder Name Role Phone Rex Lopez NP Primary Care Provi shannon Merlene Jara MD Unavailable Allergies No known active allergies Medications MV-Min-Fe Fum-FA-DHA ( 1 OR) Acti ve Vitamin D3 125 mcg Tab Take 1 tablet (125 mcg total) by mouth daily. Active Drospirenone (SLYND) 4 MG Tab Take 1 tablet by mouth daily. Active Active Problems Problem Noted Date Diagnosed Date Biliary colic 02/04/2025 Boil of groin 01/20/2023 Overview (01/20/2023): Right side. Source of her chief complaint of blood loss. On exam it is a boil draining slight serosanguineous fluid. It was opened, cultured and drained. 29 weeks gestation of ([facility] 2022 Encounters Date Type Department Care Team Description 05/22/2025 1:00 PM CDT Office Visit [facility] [address] [place] [address] Merlene Jara MD 05/22/2025 Telephone [facility] [address] [place] [address] Merlene Jara MD Appointment Reminder; Schedule Test 05/22/2025 Orders Only [facility] [address] [place] [address] Merlene Jara MD 05/22/2025 Travel 05/20/2025 Orders Only [facility] [address] [place] [address] Merlene Jara MD 05/18/2025 Scan [facility] [address] [place] [address] Scanned, Doc Pccl Holter Monitor Report (SCAN) 05/18/2025 Abstract [facility] [address] [place] [address] Abstract, Doc Pccl 05/18/2025 Telephone [facility] [address] [place] [address] Merlene Jara MD Referral 05/18/2025 Telephone [facility] [address] [place] [phone] Merlene Jara MD Referral 05/15/2025 Scan [facility] [address] [place] [address] Scanned, Doc Pccl ECG (SCAN) 03/16/2025 9:59 AM CDT - 03/16/2025 11:59 PM CDT Hospital Encounter [facility] [address] [place] [address] Camden Cabezas, [place] Discharge Disposition: Home or Self Care (Routine Discharge) 03/16/2025 Travel from Last 3 Months Social History Tobacco Use Types Packs/Day Years Used Date Smoking Tobacco: Never Smokeless Tobacco: Never Tobacco Cessation:Counseling Given: No Alcohol Use Standard Drinks/Week Comments Not Currently 0 (1 standard drink = 0.6 oz pur e alcohol) Comments No Sex and Gender Information Value Date Recorded Sex Assigned at Female 02/04/2025 9:20 AM CDT Legal Sex Female 5:46 PM PREVENTION COORDINATOR Gender Identity Not on file Sexual Orientation Not on file Last Filed Vital Signs Vital Sign Reading Time Taken Comments Blood Pressure 132/82 05/22/2025 1:05 PM CDT Pulse 41 05/22/2025 1:05 PM CDT Temperature 36.1 C (97 F) 02/12/2025 10:05 AM CDT Respiratory Rate 18 05/22/2025 1:05 PM CDT Oxygen Saturation 99% 05/22/2025 1:05 PM CDT Inhaled Oxygen Concentration - - Weight 112.5 kg (248 lb) 05/22/2025 1:05 PM CDT Height 170.2 cm (5' 7) 05/22/2025 1:05 PM CDT Body Mass Index 38.84 05/22/2025 1:05 PM CDT Plan of Treatment Upcoming Encounters Date Type Department Care Team (Late st Contact Info) Description 06/05/2025 9:00 AM CDT Hospital Encounter [facility] Non Invasive Cardiology - [facility] [address] [place] [address] Merlene Jara MD [address] [place], [place] [phone] 08/24/2025 3:15 PM CDT Office Visit [facility] [address] [place] [address] Merlene Jara MD [address] [place], [place] [phone] Health Maintenance Due Date Last Done Comments Annual Physical 2000 Hepatitis C 2015 COVID-19 Vaccine ( season) 2024 03/09/2022, 02/07/2022 PHQ-2 (Physician Callery) 11/26/2024 DTaP, Tdap and Td Vaccines (7 - Td or Tdap) 03/13/2026 03/13/2016, 08/02/2011, 03/05/2002, Additional history exists Cervical Cancer Screening Pap Smear (Age 21 to 29) Every 3 Years 11/16/2026 11/16/2023 Cervical Cancer Screening 11/16/2026 Hepatitis B Vaccines Completed 04/30/1998, 1997, 1997 [...] 5 Years) and At-Risk Patients (6 to 49 Years) Aged Out No longer eligible based on patient's age to complete this topic RSV Immunizations Under 20 Months Aged Out No longer eligible based on patient's age to complete this topic Procedures Procedure Name Priority Date/Time Associated Diagnosis Comments HOLTER DOCUMENT (SCAN ORDER) Routine 05/18/2025 12:00 AM CDT ECG GENERIC (SCAN ORDER) Routine 05/15/2025 12:00 AM CDT US ABD COMPLETE Routine 03/16/2025 10:39 AM CDT RUQ pain from Last 3 Months Results * HOLTER DOCUMENT (05/18/2025 12:00 AM CDT) 05/18/2025 us Doc Pccl Scanned SCANNING Final Result Performing Organization Address City/[facility] Co de Phone Number HS ONBASE * ECG (05/15/2025 12:00 AM CDT) 05/15/2025 us Doc Pccl Scanned SCANNING Final Result Performing Organization Address [facility] de Phone Number HS ONBASE * US ABD COMPLETE (03/16/2025 10:39 AM CDT) Anatomical Region Laterality Modality Abdomen Ultrasound 03/16/2025 4:02 PM CDT Impressions 03/16/2025 4:06 PM CDT IMPRESSION: 1. Status post cholecystectomy. 2. Suboptimal visualization of the pancreas with no discernible abnormality. Further imaging as deemed clinically appropriate. 3. Otherwise unremarkable exam. Ordered By: CAMDEN CABEZAS Interpreted By: Ernesto Esteves MD, 03/16/2025 4:02 PM Narrative 03/16/2025 4:06 PM CDT [address] [place] [address] Examination: Complete abdominal ultrasound. Exam time: 1008 hours. Clinical history: Right upper quadrant pain. Recent cholecystectomy. Comparison: None. Technique: Grayscale and color Doppler images including spectral analysis. Findings: The gallbladder is not identified, compatible with the history. There is no fluid collection or other discernible abnormality in the surgical bed. There is no intra or extrahepatic biliary ductal dilatation. The common duct measures 7 mm. Sections through the liver are unremarkable with normal-appearing color flow and spectrum documented in the portal vein on Doppler. Patency of the hepatic veins and IVC is also demonstrated. The pancreas is obscured by overlying bowel gas and bowel content but appears unremarkable, as visualized. Sections through the spleen are unremarkable. The right kidney measures 10.6 x 5.5 x 5.5 cm. The left kidney measures 11.5 x 4.7 x 5.5 cm. Cortical thickness and echogenicity appear normal. Flow to both kidneys is documented on color Doppler. No renal mass or calculus is demonstrated. There is no hydronephrosis. The caliber of the abdominal aorta is normal. No free fluid is seen. Procedure Note Ernesto Esteves MD - 03/16/[address] [place] [address] Examination: Complete abdominal ultrasound. Exam time: 1008 hours. Clinical history: Right upper quadrant pain. Recent cholecystectomy. Comparison: None. Technique: Grayscale and color Doppler images including spectralanalysis. Findings: The gallbladder is not identified, compatible with the history.There is no fluid collection or other discernible abnormality in thesurgical bed. There is no intra or extrahepatic biliary ductal dilatation.The common duct measures 7 mm. Sections through the liver are unremarkablewith normal-appearing color flow and spectrum documented in the portalvein on Doppler. Patency of the hepatic veins and IVC is alsodemonstrated. The pancreas is obscured by overlying bowel gas and bowelcontent but appears unremarkable, as visualized. Sections through thespleen are unremarkable. The right kidney measures 10.6 x 5.5 x 5.5 cm. The left kidney tmpoolqs97.5 x 4.7 x 5.5 cm. Cortical thickness and echogenicity appear normal.Flow to both kidneys is documented on color Doppler. No renal mass orcalculus is demonstrated. There is no hydronephrosis. The caliber of the abdominal aorta is normal. No free fluid is seen. IMPRESSION: 1. Status post cholecystectomy. 2. Suboptimal visualization of the pancreas with no discernibleabnormality. Further imaging as deemed clinically appropriate. 3. Otherwise unremarkable exam. Ordered By: CAMDEN CABEZAS Interpreted By: Ernesto Esteves MD, 03/16/2025 4:02 PM us Camden Cabezas [place] ULTRASOUND Final Result from Last 3 Months Insurance [facility] Care Teams Bobbin Loose End Finder Relationship Specialty Start Date End Date Rex Lopez NP [address] [place] [phone] PCP - General Nurse Practitioner Family 05/22/25 Merlene Jara MD [address] [place] [address] Consulting Physician CARDIOVASCULAR DISEASE 05/22/25
--- NOTE | 2025-06-02 12:34 | ECHO_ITS ---
Patient Info Name: Ashlie Messer Age: 29 years : 1995 Gender: Female Ht: 67 in Wt: 243 lbs BSA: 2.33 m2 HR: 59 bpm BP: 114 / 96 mmHg Technical Quality: Good Exam Date: 06/02/2025 12:55 PM Patient Status: O Admit Date: 06/02/2025 Exam Type: CA echo doppler color flow Complete two-dimensional, color flow and Doppler transthoracic echocardiogram is performed. Luggage Liner: Vanita Lee Attending Provider: Rex Lopez Summary 1. Complete two-dimensional, color flow and Doppler transthoracic echocardiogram is performed. 2. Left ventricular chamber dimension is normal. 3. Left ventricular systolic function is normal, estimated at 60-65. 4. The left ventricular diastolic function is normal. 5. E/e' 7 is not elevated. 6. Left atrial chamber dimension is mildly enlarged. 7. There is trace mitral valve regurgitation. 8. There is trace tricuspid valve regurgitation. 9. No pulmonary hypertension, estimated pulmonary arterial systolic pressure is 17 mmHg. Left Ventricle E/e' 7 is not elevated. Left ventricular chamber dimension is normal. Left ventricular systolic function is normal, estimated at 60-65. The left ventricular diastolic function is normal. Right Ventricle Right ventricular chamber dimension is normal. Right ventricular systolic function is normal and with normal TAPSE 2.9 cm. Left Atria Left atrial chamber dimension is mildly enlarged. Right Atria Right atrial chamber dimension is normal. Aortic Valve The aortic valve is trileaflet. There is no aortic valve stenosis. There is no aortic valve regurgitation. Pulmonic Valve There is no pulmonic regurgitation. Mitral Valve There is no mitral valve stenosis. There is trace mitral valve regurgitation. Tricuspid Valve There is trace tricuspid valve regurgitation. No pulmonary hypertension, estimated pulmonary arterial systolic pressure is 17 mmHg. Pericardium/Pleural There is no pericardial effusion. Inferior Vena Cava Normal inferior vena cava with >50% collapse upon inspiration consistent with normal right atrial pressure, 5 mmHg. Aorta The aortic root size at the sinus of Valsalva is normal. Left Ventricular Outflow Tract Name Value Normal LVOT 2D LVOT Diameter 2.3 cm LVOT Doppler LVOT Peak Velocity 114 cm/s LVOT Peak Gradient 5 mmHg LVOT Mean Gradient 3 mmHg LVOT VTI 23 cm LVOT VTI/AV VTI Ratio 0.9 LVOT Stroke Volume 93 ml LVOT CO 6.1 l/min LVOT CI 2.6 l/min/m2 Pulmonic Valve Name Value Normal PV Doppler PV Peak Velocity 127 cm/s PV Peak Gradient 6 mmHg Mitral Valve Name Value Normal MV Regurgitation Doppler MR Peak Gradient 95 mmHg MV Diastolic Function MV E Peak Velocity 99 cm/s MV A Peak Velocity 54 cm/s MV E/A 1.8 MV Decel Time (PW) 289 ms MV Annular TDI MV E/e' (Septal) 7.5 MV E/e' (Lateral) 6.9 MV E/e' (Average) 7.2 Tricuspid Valve Name Value Normal TV Regurgitation Doppler TR Peak Velocity 172 cm/s TR Peak Gradient 12 mmHg Estimated PAP/RSVP RA Pressure 5 mmHg <=5 PA Systolic Pressure 17 mmHg <36 RV Systolic Pressure 17 mmHg <36 TV Annular TDI TV Lateral Audrey s' Velocity 12.0 cm/s >=9.5 Aortic Valve Name Value Normal AV Doppler AV Peak Velocity 134 cm/s AV Peak Gradient 7 mmHg AV Mean Gradient 4 mmHg AV VTI 26 cm AV Area (Cont Eq VTI) 3.6 cm2 >=3.0 AV Area (Cont Eq Chaparro) 3.4 cm2 AV DI (Chaparro) 0.85 AV Regurgitation 2D LVOT Area 4.0 cm2 Ventricles Name Value Normal LV Dimensions 2D/MM IVS Diastolic Thickness (2D) 1.1 cm 0.6-1.0 LVID Diastole (2D) 5.4 cm 3.8-5.2 LVIW Diastolic Thickness (2D) 0.9 cm 0.6-0.9 LVID Systole (2D) 3.4 cm 2.2-3.5 LVOT Diameter 2.3 cm LV Mass (2D Cubed) 206.84 g 67.00-162.00 LV Mass Index (2D Cubed) 89 g/m2 43-95 Relative Wall Thickness (2D) 0.33 <=0.42 LV Fractional Shortening/Ejection Fraction 2D/MM LV Fractional Shortening (2D) 37 % 27-45 LV EF (2D Teichholz) 67 % LV Diastolic Volume (4C MOD) 148 ml LV EF (4C MOD) 63 % LV Diastolic Volume (2C MOD) 104 ml LV EF (2C MOD) 59 % LV Diastolic Volume (BP MOD) 120 ml 46-106 LV Diastolic Volume Index (BP MOD) 51 ml/m2 29-61 LV Systolic Volume (BP MOD) 37 ml 14-42 LV Systolic Volume Index (BP MOD) 16 ml/m2 8-24 LV EF (BP MOD) 69 % 54-74 LV Diastolic Length (4C) 9.5 cm LV Systolic Length (4C) 7.6 cm LV Stroke Volume (4C MOD) 93 ml Atria Name Value Normal LA Dimensions LA Volume (4C A-L) 40 ml LA Volume (BP A-L) 48 ml RA Dimensions RA Systolic Major [place] Length (4C) 5.1 cm 2.2-2.8 RA Area (4C) 15.9 cm2 <=18.0 Report Signatures
== END 2025-06-02 12:28 | disposition home or self-care (01) ==
LOC: CHSIMG 12:31
PROVIDERS: PCP Family Medicine; Visit Provider Registered Nurse
DX: I49.3 Ventricular premature depolarization (principal)
CPT/HCPCS: 93306